=== PATIENT | female | born 2000 | race African-American/Black ===

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

== ENCOUNTER 2018-04-11 20:25 | Observation (INO) | payer OTHER ==
[2018-04-11] MEDS ORDERED: ONDANSETRON 4 MG/2 ML VIAL IVP STA (21:24)
[2018-04-11] MEDS ORDERED: IPRATROPIUM 0.5 MG/2.5 ML NEBU INHALATION STA (21:24)
[2018-04-11] MEDS ORDERED: ALBUTEROL NEBULIZED 2.5 MG/3 ML INHALATION STA (21:24)
[2018-04-11] MEDS ORDERED: ACETAMINOPHEN TAB 500 MG TAB PO STA (21:24)
[2018-04-11] MEDS ORDERED: SODIUM CHLORIDE 0.9% 1,000 ML IV ONE ×2 (21:24→23:06)
[2018-04-11 21:59] LABS: Basophils % (A) 1 %; Eosinophils # (A) 0.1 k/uL (0-0.7); Eosinophils % (A) 2 %; HCT 40.1 % (34.0-46.0); Lymphocytes # (A) 0.9 k/uL (1.0-4.8); Lymphocytes % (A) 13 %; MCH 23.3 pg (25.0-35.0); MCHC 32.3 g/dL (31.0-37.0); MCV 72.2 fL (80.0-100.0); Mean Platelet Volume 6.4; Microcytosis Moderate; Monocytes # (A) 0.4 k/uL (0-1.0); Monocytes % (A) 6 %; Neutrophils # (A) 5.3 k/uL (1.3-7.7); Neutrophils % (A) 77 %; Platelet Count 366 k/uL (150-450); RBC 5.56 m/uL (3.80-5.40); RDW 15.3 % (11.5-15.5); WBC 6.9 k/uL (4.0-11.0)
[2018-04-11 22:21] LABS: ALT 24 U/L (9-52); AST 23 U/L (14-36); Alkaline Phosphatase 64 U/L (38-126); Anion Gap 9 mmol/L; Blood Urea Nitrogen 9 mg/dL (7-17); Calcium 9.1 mg/dL (8.4-10.2); Carbon Dioxide 22 mmol/L (22-30); Chloride 107 mmol/L (98-107); Glucose 98 mg/dL (74-99); Sodium 138 mmol/L (137-145); Total Bilirubin 0.6 mg/dL (0.2-1.3); Total Protein 6.9 g/dL (6.3-8.2)
--- NOTE | 2018-04-11 22:59 | XR ---
EXAMINATION TYPE: XR chest 2V DATE OF EXAM: 04/11/2018 COMPARISON: 12/16/2017 HISTORY: Chest pain TECHNIQUE: Frontal and lateral views of the chest are obtained. FINDINGS: Heart and mediastinum are normal. Lungs are clear. Diaphragm is normal. Bony thorax is int act. Pulmonary vascularity is normal. IMPRESSION: Normal chest. No change.
[2018-04-11] MEDS ORDERED: methylPREDNISolone SOD SUCCI 125 MG/2 ML VIAL IV STA (23:51)
[2018-04-12 00:46] LABS: Appearance,Urine Clear (Clear); Bacteria,Urine Occasional /hpf; Bilirubin,Urine Negative (Negative); Blood,Urine Small (Negative); Color,Urine Yellow; Glucose,Urine (UA) Negative (Negative); Ketones,Urine 1+ (Negative); Leukocyte Esterase,Urine Negative (Negative); Mucus,Urine Many /hpf; Nitrite,Urine Negative (Negative); PH, Urine 5.5 (5.0-8.0); Protein,Urine Trace (Negative); RBC,Urine 4 /hpf (0-5); Specific Gravity,Urine 1.024 (1.001-1.035); Squamous Epithelial Cell,Urine 5 /hpf (0-4); Urobilinogen,Urine <2.0 mg/dL (<2.0); WBC,Urine 3 /hpf (0-5)
[2018-04-12] MEDS ORDERED: NALOXONE 0.4 MG/ML 1 ML VIAL IV PRN (01:26)
[2018-04-12] MEDS ORDERED: ONDANSETRON 4 MG/2 ML VIAL IVP PRN (01:26)
[2018-04-12] MEDS ORDERED: ACETAMINOPHEN TAB 500 MG TAB PO PRN (01:27)
[2018-04-12] MEDS ORDERED: IPRATROPIUM-ALBUTEROL 3 ML NEB INHALATION PRN (01:27)
--- NOTE | 2018-04-12 01:29 | ED ---
SOB HPI - General Source: patient Mode of arrival: ambulatory Limitations: no limitations <Precious De Oliveira - Last Filed: 04/12/18 01:30> <Tomy Louis - Last Filed: 04/18/18 11:00> - General Chief Complaint: Shortness of Breath Stated Complaint: ANGELICA Time Seen by Provider: 04/11/18 21:13 - History of Present Illness Initial Comments: 17-year-old female patient with past medical history significant for asthma presents to emergency department today for evaluation of shortness of breath, cough, and fever. Patient states she's been having increasing shortness of breath since Wednesday. Patient states that she is felt so short of breath she's been wearing her mother's oxygen all weekend. States she has done multiple breathing treatments every day doesn't seem to help. Patient states she has been using her inhaler as well. Patient states that she today she felt feverish and chilled. States she is coughing but denies any sputum production. Denies any nasal congestion or sore throat. States that she is nauseated today but has not vomited. She denies any rash, leg pain, leg swelling, recent travel. Patient denies any recent abdominal pain, diarrhea, constipation, back pain, numbness, tingling, dizziness, weakness, hematuria, dysuria, urinary urgency, urinary frequency, headache, visual changes, or any other complaints. (Precious De Oliveira) - Related Data Home Medications Medication Instructions Recorded Confirmed Albuterol Inhaler [Ventolin Hfa 2 puff INHALATION RT-Q6H PRN 12/16/17 04/11/18 Inhaler] Previous Rx's Medication Instructions Recorded Ipratropium-Albuterol Nebulize 3 ml INHALATION RT-Q4H #120 04/13/18 [Duoneb 0.5 mg-3 mg/3 ml Soln] ampul.neb methylPREDNISolone Dose Pack 24 mg PO DAILY #1 pack 04/13/18 [Medrol Dose Pack] Allergies Allergy/AdvReac Type Severity Reaction Status Date / Time ibuprofen [From Motrin] Allergy Unknown Verified 04/11/18 21:29 Sulfa (Sulfonamide Allergy Unknown Verified 04/11/18 21:29 Antibiotics) Review of Systems ROS Other: All systems not noted in ROS Statement are negative. <Precious De Oliveira - Last Filed: 04/12/18 01:30> ROS Other: All systems not noted in ROS Statement are negative. <Tomy Louis - Last Filed: 04/18/18 11:00> ROS Statement: Those systems with pertinent positive or pertinent negative responses have been documented in the HPI. Past Medical History Past Medical History: Asthma, Thyroid Disorder Additional Past Medical History / Comment(s): low iron History of Any Multi-Drug Resistant Organisms: None Reported Past Surgical History: No Surgical Hx Reported Past Anesthesia/Blood Transfusion Reactions: No Reported Reaction Past Psychological History: ADD/ADHD, Anxiety Smoking Status: Current some day smoker Past Alcohol Use History: None Reported Past Drug Use History: None Reported <Precious De Oliveira - Last Filed: 04/12/18 01:30> General Exam Limitations: no limitations General appearance: alert, other (This is a well-developed, well-nourished adult female patient in mild respiratory distress. Vital signs upon presentation are temperature 101.6F, pulse 104, respirations 40, blood pressure 149/88, pulse ox 90% on room air.) Eye exam: Present: normal appearance, PERRL, EOMI. Absent: scleral icterus, conjunctival injection, periorbital swelling ENT exam: Present: normal exam, normal oropharynx, mucous membranes moist, TM's normal bilaterally Respiratory exam: Present: wheezes (Expiratory wheezing to all posterior lung flores), decreased breath sounds, other (Patient is tachypneic). Absent: normal lung sounds bilaterally, respiratory distress, rales, rhonchi, stridor Cardiovascular Exam: Present: normal rhythm, tachycardia, normal heart sounds. Absent: systolic murmur, diastolic murmur, rubs, gallop, clicks GI/Abdominal exam: Present: soft, normal bowel sounds. Absent: distended, tenderness, guarding, rebound, rigid Neurological exam: Present: alert, oriented X3, CN II-XII intact Psychiatric exam: Present: normal affect, normal mood Skin exam: Present: warm, dry, intact, normal color. Absent: rash <Precious De Oliveira - Last Filed: 04/12/18 01:30> Vital Signs 04/11/18 04/11/18 04/11/18 20:25 21:33 21:50 Temperature 101.6 F H Pulse Rate 104 H 86 88 Respiratory 40 H Rate Blood Pressure 149/88 O2 Sat by Pulse 90 L Oximetry 04/11/18 04/11/18 04/11/18 22:01 22:11 23:05 Temperature 101.8 F H Pulse Rate 92 92 118 H Respiratory 18 18 Rate Blood Pressure 124/57 O2 Sat by Pulse 96 Oximetry 04/12/18 04/12/18 04/12/18 01:20 02:58 04:32 Temperature 99.9 F H 98.6 F Pulse Rate 98 81 78 Respiratory 20 20 Rate Blood Pressure 128/79 114/53 O2 Sat by Pulse 94 L 96 Oximetry 04/12/18 04/12/18 04:44 06:10 Temperature 98.3 F Pulse Rate 78 68 Respiratory 18 Rate Blood Pressure 102/49 O2 Sat by Pulse 94 L Oximetry Medical Decision Making - Lab Data Result diagrams: 04/11/18 21:40 04/11/18 21:40 - Radiology Data Radiology results: report reviewed, image reviewed <Precious De Oliveira - Last Filed: 04/12/18 01:30> - Lab Data Result diagrams: 04/11/18 21:40 04/11/18 21:40 <Tomy Louis - Last Filed: 04/18/18 11:00> - Medical Decision Making 17-year-old female patient presents the emergency department today for evaluation of shortness of breath. Upon arrival patient was to, hypoxic, and tachycardic. Lung sounds did reveal expiratory wheezing but mostly overall decreased air movement. Labs reviewed and are relatively unremarkable. Patient is not . Chest x-ray showed no acute cardiopulmonary process. Patient was febrile upon arrival. She was given Tylenol, IV fluids, continuous albuterol Atrovent treatment. Patient remained hypoxic and tachycardic. We'll admit to hospital for acute asthma exacerbation probably complicated by acute viral bronchitis. We will continue breathing treatments and IV steroids. Did discuss findings and results with the patient. She does not have a primary care physician so she'll be admitted to Dr. Hardy. (Precious De Oliveira) I saw this patient in conjunction with the physician assistant nurse manager. I performed independent history and physical exam. Agree with case management. (Tomy Louis) - Lab Data Lab Results 04/11/18 04/11/18 04/11/18 Range/Units 21:40 21:40 21:40 WBC 6.9 (4.0-11.0) k/uL RBC 5.56 H (3.80-5.40) m/uL Hgb 13.0 (11.4-16.0) gm/dL Hct 40.1 (34.0-46.0) % MCV 72.2 L (80.0-100.0) fL MCH 23.3 L (25.0-35.0) pg MCHC 32.3 (31.0-37.0) g/dL RDW 15.3 (11.5-15.5) % Plt Count 366 (150-450) k/uL Neutrophils % 77 % Lymphocytes % 13 % Monocytes % 6 % Eosinophils % 2 % Basophils % 1 % Neutrophils # 5.3 (1.3-7.7) k/uL Lymphocytes # 0.9 L (1.0-4.8) k/uL Monocytes # 0.4 (0-1.0) k/uL Eosinophils # 0.1 (0-0.7) k/uL Basophils # 0.0 (0-0.2) k/uL Microcytosis Moderate D-Dimer (<0.60) mg/L FEU Sodium 138 (137-145) mmol/L Potassium 4.0 (3.5-5.1) mmol/L Chloride 107 (98-107) mmol/L Carbon Dioxide 22 (22-30) mmol/L Anion Gap 9 mmol/L BUN 9 (7-17) mg/dL Creatinine 0.90 (0.52-1.04) mg/dL Est GFR (CKD-EPI)AfAm >90 (>60 ml/min/1.73 sqM) Est GFR (CKD-EPI)NonAf >90 (>60 ml/min/1.73 sqM) Glucose 98 (74-99) mg/dL Plasma Lactic Acid Chauncey 1.1 (0.7-2.0) mmol/L Calcium 9.1 (8.4-10.2) mg/dL Magnesium 2.0 (1.6-2.3) mg/dL Total Bilirubin 0.6 (0.2-1.3) mg/dL AST 23 (14-36) U/L ALT 24 (9-52) U/L Alkaline Phosphatase 64 (38-126) U/L Total Protein 6.9 (6.3-8.2) g/dL Albumin 4.0 (3.5-5.0) g/dL Urine Color Urine Appearance (Clear) Urine pH (5.0-8.0) Ur Specific Huntley (1.001-1.035) Urine Protein (Negative) Urine Glucose (UA) (Negative) Urine Ketones (Negative) Urine Blood (Negative) Urine Nitrite (Negative) Urine Bilirubin (Negative) Urine Urobilinogen (<2.0) mg/dL Ur Leukocyte Esterase (Negative) Urine RBC (0-5) /hpf Urine WBC (0-5) /hpf Ur Squamous Epith Cells (0-4) /hpf Urine Bacteria (None) /hpf Urine Mucus (None) /hpf Urine HCG, Qual (Not Detectd) Influenza Type A RNA (Not Detectd) Influenza Type B (PCR) (Not Detectd) 04/11/18 04/11/18 04/12/18 Range/Units 21:40 23:14 00:19 WBC (4.0-11.0) k/uL RBC (3.80-5.40) m/uL Hgb (11.4-16.0) gm/dL Hct (34.0-46.0) % MCV (80.0-100.0) fL MCH (25.0-35.0) pg MCHC (31.0-37.0) g/dL RDW (11.5-15.5) % Plt Count (150-450) k/uL Neutrophils % % Lymphocytes % % Monocytes % % Eosinophils % % Basophils % % Neutrophils # (1.3-7.7) k/uL Lymphocytes # (1.0-4.8) k/uL Monocytes # (0-1.0) k/uL Eosinophils # (0-0.7) k/uL Basophils # (0-0.2) k/uL Microcytosis D-Dimer 0.43 (<0.60) mg/L FEU Sodium (137-145) mmol/L Potassium (3.5-5.1) mmol/L Chloride (98-107) mmol/L Carbon Dioxide (22-30) mmol/L Anion Gap mmol/L BUN (7-17) mg/dL Creatinine (0.52-1.04) mg/dL Est GFR (CKD-EPI)AfAm (>60 ml/min/1.73 sqM) Est GFR (CKD-EPI)NonAf (>60 ml/min/1.73 sqM) Glucose (74-99) mg/dL Plasma Lactic Acid Chauncey (0.7-2.0) mmol/L Calcium (8.4-10.2) mg/dL Magnesium (1.6-2.3) mg/dL Total Bilirubin (0.2-1.3) mg/dL AST (14-36) U/L ALT (9-52) U/L Alkaline Phosphatase (38-126) U/L Total Protein (6.3-8.2) g/dL Albumin (3.5-5.0) g/dL Urine Color Urine Appearance (Clear) Urine pH (5.0-8.0) Ur Specific Huntley (1.001-1.035) Urine Protein (Negative) Urine Glucose (UA) (Negative) Urine Ketones (Negative) Urine Blood (Negative) Urine Nitrite (Negative) Urine Bilirubin (Negative) Urine Urobilinogen (<2.0) mg/dL Ur Leukocyte Esterase (Negative) Urine RBC (0-5) /hpf Urine WBC (0-5) /hpf Ur Squamous Epith Cells (0-4) /hpf Urine Bacteria (None) /hpf Urine Mucus (None) /hpf Urine HCG, Qual Not Detected (Not Detectd) Influenza Type A RNA Not Detected (Not Detectd) Influenza Type B (PCR) Not Detected (Not Detectd) 04/12/18 Range/Units 00:19 WBC (4.0-11.0) k/uL RBC (3.80-5.40) m/uL Hgb (11.4-16.0) gm/dL Hct (34.0-46.0) % MCV (80.0-100.0) fL MCH (25.0-35.0) pg MCHC (31.0-37.0) g/dL RDW (11.5-15.5) % Plt Count (150-450) k/uL Neutrophils % % Lymphocytes % % Monocytes % % Eosinophils % % Basophils % % Neutrophils # (1.3-7.7) k/uL Lymphocytes # (1.0-4.8) k/uL Monocytes # (0-1.0) k/uL Eosinophils # (0-0.7) k/uL Basophils # (0-0.2) k/uL Microcytosis D-Dimer (<0.60) mg/L FEU Sodium (137-145) mmol/L Potassium (3.5-5.1) mmol/L Chloride (98-107) mmol/L Carbon Dioxide (22-30) mmol/L Anion Gap mmol/L BUN (7-17) mg/dL Creatinine (0.52-1.04) mg/dL Est GFR (CKD-EPI)AfAm (>60 ml/min/1.73 sqM) Est GFR (CKD-EPI)NonAf (>60 ml/min/1.73 sqM) Glucose (74-99) mg/dL Plasma Lactic Acid Chauncey (0.7-2.0) mmol/L Calcium (8.4-10.2) mg/dL Magnesium (1.6-2.3) mg/dL Total Bilirubin (0.2-1.3) mg/dL AST (14-36) U/L ALT (9-52) U/L Alkaline Phosphatase (38-126) U/L Total Protein (6.3-8.2) g/dL Albumin (3.5-5.0) g/dL Urine Color Yellow Urine Appearance Clear (Clear) Urine pH 5.5 (5.0-8.0) Ur Specific Huntley 1.024 (1.001-1.035) Urine Protein Trace H (Negative) Urine Glucose (UA) Negative (Negative) Urine Ketones 1+ H (Negative) Urine Blood Small H (Negative) Urine Nitrite Negative (Negative) Urine Bilirubin Negative (Negative) Urine Urobilinogen <2.0 (<2.0) mg/dL Ur Leukocyte Esterase Negative (Negative) Urine RBC 4 (0-5) /hpf Urine WBC 3 (0-5) /hpf Ur Squamous Epith Cells 5 H (0-4) /hpf Urine Bacteria Occasional H (None) /hpf Urine Mucus Many H (None) /hpf Urine HCG, Qual (Not Detectd) Influenza Type A RNA (Not Detectd) Influenza Type B (PCR) (Not Detectd) - Radiology Data Two-view x-ray of the chest is obtained. Heart mediastinum are normal. Lungs are clear. Diaphragm is normal. Bony thorax is intact. Pulmonary vascularity is normal. Impression by Dr. Gottlieb shows normal chest with no change. ( Precious De Oliveira) Disposition Decision to Admit Reason: Admit from EC Decision Date: 04/12/18 Decision Time: 01:36 <Precious De Oliveira - Last Filed: 04/12/18 01:30> <Tomy Louis - Last Filed: 04/18/18 11:00> Clinical Impression: Acute asthma exacerbation, Acute viral bronchitis, Hypoxia Disposition: ADMITTED IP TO THIS HOSP Condition: Serious
[2018-04-12] MEDS: IPRATROPIUM-ALBUTEROL 3 ML NEB INHALATION SCH ×5 (04:28→19:41)
[2018-04-12] MEDS: methylPREDNISolone SOD SUCCI 125 MG/2 ML VIAL IV SCH ×3 (06:08→17:24)
[2018-04-12] MEDS ORDERED: LEVOFLOXACIN 500 MG TAB PO STA (12:16)
[2018-04-12 14:08] VITALS: BMI 41.8
--- NOTE | 2018-04-12 15:53 | HP ---
HISTORY AND PHYSICAL CHIEF COMPLAINT: Shortness of breath and difficulty breathing, history of asthma. HISTORY OF PRESENT ILLNESS: This young lady was admitted through the emergency room, where she presented with asthma, bronchospasm which could not be broken, and she was admitted with status asthmaticus. She is not currently taking any medications at home. REVIEW OF SYSTEMS: She has had no headaches, problems with vision or hearing, cough, hemoptysis, chills, chest pain, abdominal pain, vomiting, diarrhea, melena, urinary complaints, etc. She does have problems with anxiety. Past medical history, family history, and personal and social histories reveal that she is ALLERGIC TO MOTRIN AND SULFA. She smokes occasionally. Laboratory studies were unremarkable. PHYSICAL EXAMINATION: VITAL SIGNS: Temperature 101.6, blood pressure 149/88. Respiratory rate is 40 and pulse is 104. In general she appeared to be short of breath and in no acute distress. Head, ears, eyes, nose, mouth and throat were normal. Neck veins were not distended. Chest demonstrated bilateral wheezing on inspiration and expiration. There was a prolonged expiratory phase. She had sinus tachycardia. The abdomen was soft and nontender and there were no masses or visceromegaly. IMPRESSIONS: 1. Status asthmaticus. 2. History of anxiety. 3. Fever of unknown origin. 4. Bronchitis. 5. Hypertension. PLAN: 1. Bed rest. 2. IV fluids. 3. IV inhaled steroids. 4. Antibiotics. BEAN / SUSANA: [id number] /
[2018-04-13] MEDS: methylPREDNISolone SOD SUCCI 125 MG/2 ML VIAL IV SCH ×2 (01:00→06:21)
[2018-04-13] MEDS: IPRATROPIUM-ALBUTEROL 3 ML NEB INHALATION SCH ×4 (01:20→11:38)
[2018-04-13 06:03] VITALS: RESP 16
[2018-04-13 12:07] VITALS: BP 115/56; PULSE 75; TEMP 97.8
--- NOTE | 2018-04-13 22:44 | DS ---
DISCHARGE SUMMARY DATE OF SERVICE: 04/13/2018. CHIEF COMPLAINT: Status asthmaticus. HISTORY OF PRESENT ILLNESS AND PHYSICAL EXAM: Details of this lady's history and physical can be found in the initial workup. LABORATORY STUDIES: While she was in a hospital she had laboratory studies, details which can be found laboratory section of her chart. COURSE IN HOSPITAL: After admission, she was placed on bedrest, started on intravenous fluids and she received IV inhaled steroids as well as updrafts and she was doing quite well. It was felt clear enough to go home on the . She will go home and be provided with a nebulizer machine with DuoNeb and she will also be on Medrol Dosepak. We will see her in the office in a day or 2. FINAL DIAGNOSIS: Status asthmaticus. OPERATIONS: None. CONSULTATIONS: None. She is improved. JESSIEL / GALLON: [id number] /
[2018-04-14] MEDS ORDERED: methylPREDNISolone 4 MG TAB TAPER PO SCH (09:00)
== END 2018-04-13 13:05 | disposition home or self-care (01) ==
LOC: EC 20:25 → 3NMEDONC 04-12 01:20 → INTOOBSV 04-12 01:20 → 3NMEDONC 04-12 06:55 → UNDODISIN 04-13 13:05
PROVIDERS: ADMIT Family Medicine; ATTEND Family Medicine
DX: J45.902 Unspecified asthma with status asthmaticus (principal); R09.02 Hypoxemia; J20.8 Acute bronchitis due to other specified organisms; I10 Essential (primary) hypertension; R11.0 Nausea; E07.9 Disorder of thyroid, unspecified; F90.9 Attention-deficit hyperactivity disorder, unspecified type; F41.9 Anxiety disorder, unspecified; F17.200 Nicotine dependence, unspecified, uncomplicated; Z79.899 Other long term (current) drug therapy; Z88.6 Allergy status to analgesic agent; Z88.2 Allergy status to sulfonamides
CPT/HCPCS: 96376 ×3; 96361 ×2; 96374; 96375; 99285; 36415; 94640 ×4; 94644; 85379; 80053; 83605; 83735; 85025; 81001; 81025; 87040; 87502; 71046; G0378 ×2; J2930 ×2; J2405

== ENCOUNTER → 2018-05-05 | Outpatient (CLI) | payer OTHER ==
--- NOTE | 2018-05-05 08:24 | US ---
EXAMINATION TYPE: US abdomen complete DATE OF EXAM: 05/05/2018 COMPARISON: NONE CLINICAL HISTORY: K52.9 Chronic Diarrhea, N91.2 Amenorrhea, R10.9abd. Intermittent abdomen pain x 2 y ears, N/V EXAM MEASUREMENTS: Liver Length: 17.1 cm Gallbladder Wall: 0.2 cm CBD: 0.4 cm Spleen: 9.0 cm Right Kidney: 10.2 x 4.0 x 5.1 cm Left Kidney: 10.2 x 5.3 x 5.1 cm Difficult and limited study due to patient body habitus Pancreas: obscured by overlying midline bowel gas Liver: wnl Gallbladder: limited visualization, appears contracted, posterior shadowing possible full of stones, wall measures wnl Evidence for sonographic Barraza's sign: yes CBD: visualized portions wnl, limited by overlying bowel gas Spleen: wnl Right Kidney: wnl Left Kidney: wnl Upper IVC: wnl Abd Aorta: visualized portions wnl, limited by overlying midline bowel gas The visualized liver is homogenous. The intrahepatic portion of the IVC and visualized abdominal aor ta are within normal limits. At level of gallbladder fossa there is curvilinear shadowing density cou ld reflect stone filled contracted gallbladder. Common bile duct is unremarkable. The pancreas is s uboptimally evaluated on images saved secondary to shadowing from overlying bowel gas per technologis t. The spleen is unremarkable. Kidneys are symmetric and free of hydronephrosis. No renal lesions are seen. IMPRESSION: Exam noted suboptimal as detailed above. Suspect stone filled contracted gallbladder. Inp atient with above symptoms and positive sonographic Barraza's sign acute cholecystitis cannot be entir marty excluded. Consider HIDA scan follow-up.
--- NOTE | 2018-05-05 10:44 | US ---
EXAMINATION TYPE: US pelvic complete DATE OF EXAM: 05/05/2018 COMPARISON: NONE CLINICAL HISTORY: K52.9 Chronic Diarrhea, N91.2 Amenorrhea, R10.9abd. Intermittent pelvic pain x 2 ye ars TECHNIQUE: Transabdominal (TA). Transabdominal sonographic images of the pelvis were acquired. Date of LMP: Unknown EXAM MEASUREMENTS: Uterus: 7.5 x 3.8 x 5.4 cm Endometrial Stripe: 0.5 cm Right Ovary: 3.0 x 1.7 x 2.0 cm Left Ovary: 2.9 x 1.4 x 1.4 cm 1. Uterus: anteverted, wnl 2. Endometrium: wnl 3. Right Ovary: wnl 4. Left Ovary: wnl 5. Bilateral Adnexa: wnl 6. Posterior cul-de-sac: wnl Heterogeneous anteverted uterus is seen. Endometrial stripe is within normal limits in thickness. No free fluid is seen in pelvic cul-de-sac. Both ovaries are seen without concerning adnexal masses note d on images saved. IMPRESSION: Unremarkable transabdominal pelvic ultrasound
== END | disposition home or self-care (01) ==
LOC: RADUSWWP 07:00
PROVIDERS: ATTEND Family Medicine
DX: R10.9 Unspecified abdominal pain (principal); K62.9 Disease of anus and rectum, unspecified; N91.2 Amenorrhea, unspecified
CPT/HCPCS: 76700; 76856

== ENCOUNTER 2018-07-30 18:38 | Emergency (ER) | payer OTHER ==
[2018-07-30 18:51] VITALS: BP 113/73; TEMP 99.3
[2018-07-30] MEDS ORDERED: ALBUTEROL NEBULIZED 2.5 MG/3 ML INHALATION STA (19:05)
--- NOTE | 2018-07-30 19:10 | ED ---
URI HPI - General Chief Complaint: Upper Respiratory Infection Stated Complaint: Cough Time Seen by Provider: 07/30/18 18:58 Source: patient Mode of arrival: ambulatory Limitations: no limitations - History of Present Illness Initial Comments: 17 -year-old female presents with upper story symptoms for last 2 weeks. Patient had a cough and congestion that has some green phlegm production. Patient states she's gotten worse over last few days and having some discomfort in her chest. Patient does have a history of asthma and has possibly had a pneumonia in the past as well. Patient does not think she's had any fevers patient does feel fatigued. No sinus congestion no sore throat MD Complaint: cough - Related Data Home Medications Medication Instructions Recorded Confirmed Albuterol Inhaler [Ventolin Hfa 2 puff INHALATION RT-Q6H PRN 12/16/17 04/11/18 Inhaler] Previous Rx's Medication Instructions Recorded Ipratropium-Albuterol Nebulize 3 ml INHALATION RT-Q4H #120 04/13/18 [Duoneb 0.5 mg-3 mg/3 ml Soln] ampul.neb methylPREDNISolone Dose Pack 24 mg PO DAILY #1 pack 04/13/18 [Medrol Dose Pack] Azithromycin [Zithromax Z-pack] 250 mg PO DIRECTED #6 tab 07/30/18 methylPREDNISolone [Medrol Dose 4 mg PO DIRECTED #1 pack 07/30/18 Pack] Allergies Allergy/AdvReac Type Severity Reaction Status Date / Time ibuprofen [From Motrin] Allergy Unknown Verified 07/30/18 18:51 Sulfa (Sulfonamide Allergy Unknown Verified 07/30/18 18:51 Antibiotics) Review of Systems ROS Statement: Those systems with pertinent positive or pertinent negative responses have been documented in the HPI. ROS Other: All systems not noted in ROS Statement are negative. Constitutional: Denies: fever, chills Respiratory: Reports: cough Endocrine: Reports: fatigue Gastrointestinal: Denies: nausea, vomiting, diarrhea Neurological: Denies: headache, weakness Past Medical History Past Medical History: Asthma, Thyroid Disorder Additional Past Medical History / Comment(s): low iron, enlarged thyroid, severe headaches. History of Any Multi-Drug Resistant Organisms: None Reported Past Surgical History: No Surgical Hx Reported Additional Past Surgical History / Comment(s): Pt states she has never had surgery. Past Anesthesia/Blood Transfusion Reactions: No Reported Reaction Past Psychological History: ADD/ADHD, Anxiety Smoking Status: Light tobacco smoker Past Alcohol Use History: None Reported Past Drug Use History: None Reported - Past Family History Father History Unknown: Yes Additional Family Medical History / Comment(s): Pt's father is not in her life Mother Family Medical History: COPD Additional Family Medical History / Comment(s): Mother wears oxygen at night. General Exam Limitations: no limitations General appearance: alert, in no apparent distress Head exam: Present: atraumatic, normocephalic, normal inspection Eye exam: Present: normal appearance, PERRL, EOMI. Absent: scleral icterus, conjunctival injection, periorbital swelling ENT exam: Present: normal exam, mucous membranes moist Respiratory exam: Present: normal lung sounds bilaterally, wheezes. Absent: respiratory distress, rales, rhonchi, stridor Cardiovascular Exam: Present: regular rate, normal rhythm, normal heart sounds. Absent: systolic murmur, diastolic murmur, rubs, gallop, clicks Neurological exam: Present: alert, oriented X3, CN II-XII intact Psychiatric exam: Present: normal affect, normal mood Skin exam: Present: warm, dry, intact, normal color. Absent: rash Course Vital Signs 07/30/18 07/30/18 18:49 19:20 Temperature 99.3 F Pulse Rate 78 Respiratory 18 20 Rate Blood Pressure 113/73 O2 Sat by Pulse 100 Oximetry Medical Decision Making - Medical Decision Making Reviewed blood testing negative Influenza. Reviewed chest x-ray no acute infiltrate however increased inflammation of the right lower lung we'll treat with antibiotics and steroids the patient kvng has an inhaler at home. - Lab Data Lab Results 07/30/18 Range/Units 19:18 Influenza Type A RNA Not Detected (Not Detectd) Influenza Type B (PCR) Not Detected (Not Detectd) Disposition Clinical Impression: Bronchitis Disposition: HOME SELF-CARE Condition: Good Instructions (If sedation given, give patient instructions): Upper Respiratory Infection (ED), Acute Bronchitis (ED) Prescriptions: methylPREDNISolone [Medrol Dose Pack] 4 mg PO DIRECTED #1 pack Azithromycin [Zithromax Z-pack] 250 mg PO DIRECTED #6 tab Is patient prescribed a controlled substance at d/c from ED?: No Referrals: Deepika Agrawal MD [Primary Care Provider] - 1-2 days Time of Disposition: 19:55
[2018-07-30 19:21] VITALS: RESP 20
[2018-07-30 20:11] VITALS: PULSE 70
--- NOTE | 2018-07-30 20:28 | XR ---
EXAMINATION TYPE: XR chest 2V DATE OF EXAM: 07/30/2018 COMPARISON: 04/11/2018 INDICATION: Pain, cough TECHNIQUE: Frontal and lateral views of the chest are obtained. FINDINGS: The heart size is normal. The pulmonary vasculature is normal. The lungs are clear. IMPRESSION: 1. No acute pulmonary process.
== END 2018-07-30 20:30 | disposition home or self-care (01) ==
LOC: EC 18:38
DX: J45.909 Unspecified asthma, uncomplicated (principal); F17.200 Nicotine dependence, unspecified, uncomplicated; Z88.2 Allergy status to sulfonamides; Z88.6 Allergy status to analgesic agent
CPT/HCPCS: 71046; 87502; 94640; 99284

== ENCOUNTER 2018-08-10 19:53 | Emergency (ER) | payer OTHER ==
[2018-08-10 20:05] VITALS: BP 106/68; PULSE 102; RESP 18; TEMP 100
[2018-08-10] MEDS ORDERED: ACETAMINOPHEN TAB 500 MG TAB PO STA (20:09)
[2018-08-10] MEDS ORDERED: AMOXICILLIN 500 MG CAP PO STA (20:18)
--- NOTE | 2018-08-10 20:28 | ED ---
General Adult HPI - General Chief complaint: ENT Stated complaint: Throat Pain Time Seen by Provider: 08/10/18 20:06 Source: patient, RN notes reviewed, old records reviewed Mode of arrival: ambulatory Limitations: no limitations - History of Present Illness Initial comments: 17-year-old female patient with no pertinent past history presents to ED with 1 day of sore throat, enlarged tonsils, exudate and posterior pharynx. Patient also reports some minor fevers. Patient denies any other complaints. Systemic: Pt denies fatigue, myalgia, fever/chills, rash. Pt denies weakness, night sweats, weight loss. Neuro: Pt denies headache, visual disturbances, syncope or pre-syncope. HEENT: Pt denies ocular discharge or irritation, otalgia, rhinorrhea, phar yngitis or notable lymphadenopathy. Cardiopulmonary: Pt denies chest pain, SOB, heart palpitations, dyspnea on exertion. Abdominal/GI: Pt denies abdominal pain, n/v/d. : Pt denies dysuria, burning w/ urination, frequency/urgency. Denies new onset urinary or bowel incontinence. MSK: Pt denies myalgia, loss of strength or function in extremities. Neuro: Pt denies new onset weakness, paresthesias. - Related Data Home Medications Medication Instructions Recorded Confirmed Albuterol Inhaler [Ventolin Hfa 2 puff INHALATION RT-Q6H PRN 12/16/17 04/11/18 Inhaler] Previous Rx's Medication Instructions Recorded Ipratropium-Albuterol Nebulize 3 ml INHALATION RT-Q4H #120 04/13/18 [Duoneb 0.5 mg-3 mg/3 ml Soln] ampul.neb methylPREDNISolone Dose Pack 24 mg PO DAILY #1 pack 04/13/18 [Medrol Dose Pack] Azithromycin [Zithromax Z-pack] 250 mg PO DIRECTED #6 tab 07/30/18 methylPREDNISolone [Medrol Dose 4 mg PO DIRECTED #1 pack 07/30/18 Pack] Amoxicillin 500 mg PO Q12HR 10 Days day 08/10/18 Allergies Allergy/AdvReac Type Severity Reaction Status Date / Time ibuprofen [From Motrin] Allergy Unknown Verified 08/10/18 20:05 Sulfa (Sulfonamide Allergy Unknown Verified 08/10/18 20:05 Antibiotics) Review of Systems ROS Statement: Those systems with pertinent positive or pertinent negative responses have been documented in the HPI. ROS Other: All systems not noted in ROS Statement are negative. Past Medical History Past Medical History: Asthma, Thyroid Disorder Additional Past Medical History / Comment(s): low iron, enlarged thyroid, severe headaches. History of Any Multi-Drug Resistant Organisms: None Reported Past Surgical History: No Surgical Hx Reported Additional Past Surgical History / Comment(s): Pt states she has never had surgery. Past Anesthesia/Blood Transfusion Reactions: No Reported Reaction Past Psychological History: ADD/ADHD, Anxiety Smoking Status: Light tobacco smoker Past Alcohol Use History: None Reported Past Drug Use History: None Reported - Past Family History Father History Unknown: Yes Additional Family Medical History / Comment(s): Pt's father is not in her life Mother Family Medical History: COPD Additional Family Medical History / Comment(s): Mother wears oxygen at night. General Exam - General Exam Comments Initial Comments: Constitutional: NAD, AOX3, Pt has pleasant affect. HEENT: NC/AT, trachea midline, neck supple, no lymphadenopathy. Posterior pharynx erythematous, +2 tonsils, with scattered exudates. External ears appear normal, without discharge. Mucous membranes moist. Eyes PERRLA, EOM intact. There is no scleral icterus. No pallor noted. Cardiopulmonary: RRR, no murmurs, rubs or gallops, no JVD noted. Lungs CTAB in anterior and posterior flores. No peripheral edema. Abdominal exam: Abdomen soft and non-distended. Abdomen non-tender to palpation in all 4 quadrants. Bowel sounds active in LLQ. No hepatosplenomegaly. No ecch ymosis Neuro: CN II-XII grossly intact. No nuchal rigidity. MSK: No posterior calf tenderness bilaterally, homans sign negative bilaterally. Posterior tibialis and radial pulse +2 bilaterally. Sensation intact in upper and lower extremities. Full active ROM in upper and lower extremities, 5/5 stregnth. Limitations: no limitations Course Vital Signs 08/10/18 20:03 Temperature 100 F H Pulse Rate 102 H Respiratory 18 Rate Blood Pressure 106/68 O2 Sat by Pulse 99 Oximetry Medical Decision Making - Medical Decision Making 17-year-old female patient with no pertinent past history presents to ED with 1 day of sore throat, enlarged tonsils, exudate and posterior pharynx. Patient also reports some minor fevers. Patient denies any other complaints. Pt VS displayed mild fever, pt administered antipyretic. Physical exam displayed: Posterior pharynx erythematous, +2 tonsils, with scattered exudates. Patient will be treated for presumed streptococcal pharyngitis. Patient administered 1 dose of amoxicillin ED. Patient discharged with prescription for amoxicillin. Patient to follow up with primary care provider in 1-2 days. Patient return to ER if condition worsens in any way. Case discussed with Dr. Miller. Disposition Clinical Impression: Pharyngitis Disposition: HOME SELF-CARE Condition: Stable Instructions (If sedation given, give patient instructions): Strep Throat (ED), Pharyngitis (ED) Additional Instructions: Patient to adhere to previously discussed treatment plan and will take medication(s) as directed. Patient to follow up with PCP in 1-2 days. Patient to return to ED if symptoms do not improve. Take medications as prescribed. Follow with primary care provider in 1-2 days. Return to ER if condition worsens. Prescriptions: Amoxicillin 500 mg PO Q12HR 10 Days day Is patient prescribed a controlled substance at d/c from ED?: No Referrals: Deepika Agrawal MD [Primary Care Provider] - 1-2 days
== END 2018-08-10 20:32 | disposition home or self-care (01) ==
LOC: EC 19:53
DX: J02.9 Acute pharyngitis, unspecified (principal); J45.909 Unspecified asthma, uncomplicated; F17.200 Nicotine dependence, unspecified, uncomplicated; Z88.2 Allergy status to sulfonamides; Z88.6 Allergy status to analgesic agent
CPT/HCPCS: 99283

== ENCOUNTER 2019-01-19 12:46 | Inpatient (IN) | payer MEDICAID, OTHER ==
[2019-01-19 13:49] LABS: Amphetamine Screen,Urine Not Detected (NotDetected); Barbiturate Screen,Urine Not Detected (NotDetected); Benzodiazepines Screen,Urine Not Detected (NotDetected); Cocaine Screen,Urine Not Detected (NotDetected); Methadone Screen, Urine Not Detected (NotDetected); Opiate Screen,Urine Not Detected (NotDetected); Oxycodone Screen, Urine Not Detected (NotDetected); Phencyclidine Screen,Urine Not Detected (NotDetected); Tricyclic Antidepressant,Urine Not Detected (NotDetected); Urn Cannabinoid Scrn Detected (NotDetected)
--- NOTE | 2019-01-19 14:54 | ED ---
Psych HPI - General Chief Complaint: Psychiatric Symptoms Stated Complaint: EPS eval Time Seen by Provider: 01/19/19 12:58 Source: patient, police, EMS, RN notes reviewed Mode of arrival: EMS - History of Present Illness Initial Comments: This is a 18-year-old female history depression since age of 12 but her grandmother who was brought in today for evaluation. She called her mother states she went to jump off a bridge and she was found by paramedics wandering near railroad tracks. Patient denies any drug drugs she states she just feels empty inside and then inside. No other modifying factors at this time MD Complaint: suicidal ideation, feels depressed - Related Data Home Medications Medication Instructions Recorded Confirmed Ferrous Sulfate [Feosol] 325 mg PO DAILY 01/19/19 01/19/19 Kurvelo 0.15/30mg 1 tab PO DAILY 01/19/19 01/19/19 Naproxen 500 mg PO BID 01/19/19 01/19/19 Varenicline [Chantix Continuing 1 mg PO BID 01/19/19 01/19/19 Pack] Allergies Allergy/AdvReac Type Severity Reaction Status Date / Time ibuprofen [From Motrin] Allergy Unknown Verified 08/10/18 20:05 Sulfa (Sulfonamide Allergy Unknown Verified 08/10/18 20:05 Antibiotics) Review of Systems ROS Statement: Those systems with pertinent positive or pertinent negative responses have been documented in the HPI. ROS Other: All systems not noted in ROS Statement are negative. Past Medical History Past Medical History: Asthma, Thyroid Disorder Additional Past Medical History / Comment(s): low iron, enlarged thyroid, severe headaches. History of Any Multi-Drug Resistant Organisms: None Reported Past Surgical History: No Surgical Hx Reported Additional Past Surgical History / Comment(s): Pt states she has never had surgery. Past Anesthesia/Blood Transfusion Reactions: No Reported Reaction Past Psychological History: ADD/ADHD, Anxiety Smoking Status: Light tobacco smoker Past Alcohol Use History: None Reported Past Drug Use History: None Reported - Past Family History Father History Unknown: Yes Additional Family Medical History / Comment(s): Pt's father is not in her life Mother Family Medical History: COPD Additional Family Medical History / Comment(s): Mother wears oxygen at night. General Exam - General Exam Comments Initial Comments: This is a well-developed well-nourished awake alert oriented 3 female she is tearful during the evaluation Limitations: no limitations General appearance: alert, in no apparent distress Head exam: Present: atraumatic, normocephalic, normal inspection Eye exam: Present: normal appearance, PERRL, EOMI. Absent: scleral icterus, conjunctival injection, periorbital swelling ENT exam: Present: normal exam, mucous membranes moist Neck exam: Present: normal inspection. Absent: tenderness, meningismus, lymphadenopathy Respiratory exam: Present: normal lung sounds bilaterally. Absent: respiratory distress, wheezes, rales, rhonchi, stridor Cardiovascular Exam: Present: regular rate, normal rhythm, normal heart sounds. Absent: systolic murmur, diastolic murmur, rubs, gallop, clicks GI/Abdominal exam: Present: soft, normal bowel sounds. Absent: distended, tenderness, guarding, rebound, rigid Extremities exam: Present: normal inspection, full ROM, normal capillary refill. Absent: tenderness, pedal edema, joint swelling, calf tenderness Back exam: Present: normal inspection Neurological exam: Present: alert, oriented X3, CN II-XII intact Psychiatric exam: Present: depressed, flat affect, suicidal ideation Skin exam: Present: warm, dry, intact, normal color. Absent: rash Course Vital Signs 01/19/19 13:02 Temperature 98.0 F Pulse Rate 62 Respiratory 16 Rate Blood Pressure 126/56 O2 Sat by Pulse 95 Oximetry Medical Decision Making - Medical Decision Making Patient was evaluated by the psychiatric service and will be admitted for inpatient treatment of depression and suicidal ideation. She has agreed to sign an. - Lab Data Lab Results 01/19/19 Range/Units 13:00 Urine Opiates Screen Not Detected (NotDetected) Ur Oxycodone Screen Not Detected (NotDetected) Urine Methadone Screen Not Detected (NotDetected) Ur Propoxyphene Screen Not Detected (NotDetected) Ur Barbiturates Screen Not Detected (NotDetected) U Tricyclic Antidepress Not Detected (NotDetected) Ur Phencyclidine Scrn Not Detected (NotDetected) Ur Amphetamines Screen Not Detected (NotDetected) U Methamphetamines Scrn Not Detected (NotDetected) U Benzodiazepines Scrn Not Detected (NotDetected) Urine Cocaine Screen Not Detected (NotDetected) U Marijuana (THC) Screen Detected H (NotDetected) Disposition Clinical Impression: Depression, Suicidal ideation Disposition: TRANSFER TO PSYCH HOSP/UNIT Condition: Stable Referrals: Eduardo Saunders DO [Primary Care Provider] - 1-2 days
[2019-01-19 16:15] LABS: Appearance,Urine Clear (Clear); Bilirubin,Urine Negative (Negative); Blood,Urine Negative (Negative); Color,Urine Yellow; Glucose,Urine (UA) Negative (Negative); Ketones,Urine Negative (Negative); Leukocyte Esterase,Urine Negative (Negative); Nitrite,Urine Negative (Negative); Protein,Urine Negative (Negative); Specific Gravity,Urine 1.025 (1.001-1.035); Urobilinogen,Urine <2.0 mg/dL (<2.0)
[2019-01-19] MEDS ORDERED: MAG HYDROX/AL HYDROX/SIMETH 30 ML CUP PO PRN (17:25)
[2019-01-19] MEDS ORDERED: MAGNESIUM HYDROXIDE 2,400 MG/10 ML CUP PO PRN (17:25)
[2019-01-19] MEDS ORDERED: LORazepam 1 MG TAB PO PRN (17:25)
[2019-01-19] MEDS ORDERED: LORazepam 2 MG/ML INJ IM PRN (17:28)
[2019-01-19] MEDS ORDERED: ZIPRASIDONE 20 MG VIAL IM PRN (17:29)
[2019-01-19] MEDS: NICOTINE 7MG/24HR PATCH TRANSDERM SCH (19:35)
[2019-01-20 08:59] LABS: Basophils % (A) 0 %; Eosinophils # (A) 0.2 k/uL (0-0.7); Eosinophils % (A) 3 %; HCT 39.1 % (34.0-46.0); HGB 12.7 gm/dL (11.4-16.0); Lymphocytes # (A) 1.4 k/uL (1.0-4.8); Lymphocytes % (A) 22 %; MCH 24.8 pg (25.0-35.0); MCHC 32.6 g/dL (31.0-37.0); MCV 76.2 fL (80.0-100.0); Mean Platelet Volume 6.3; Microcytosis Slight; Monocytes # (A) 0.4 k/uL (0-1.0); Monocytes % (A) 5 %; Neutrophils # (A) 4.3 k/uL (1.3-7.7); Neutrophils % (A) 67 %; Platelet Count 423 k/uL (150-450); RBC 5.13 m/uL (3.80-5.40); WBC 6.5 k/uL (4.0-11.0)
[2019-01-20] MEDS: NICOTINE 7MG/24HR PATCH TRANSDERM SCH (09:01)
[2019-01-20 09:21] LABS: ALT 18 U/L (9-52); AST 21 U/L (14-36); African American GFR (CKD) >90 (>60 ml/min/1.73 sqM); Alkaline Phosphatase 59 U/L (38-126); Anion Gap 10 mmol/L; Blood Urea Nitrogen 10 mg/dL (7-17); Calcium 9.4 mg/dL (8.4-10.2); Carbon Dioxide 19 mmol/L (22-30); Chloride 109 mmol/L (98-107); Cholesterol 140 mg/dL (<200); Glucose 97 mg/dL (74-99); HDL Cholesterol 37 mg/dL (40-60); LDL Cholesterol,Calculated 84 mg/dL (0-99); Non-African American GFR(CKD) >90 (>60 ml/min/1.73 sqM); Potassium 4.1 mmol/L (3.5-5.1); Sodium 138 mmol/L (137-145); Total Bilirubin 1.8 mg/dL (0.2-1.3); Total Protein 6.8 g/dL (6.3-8.2); Triglycerides 96 mg/dL (<150)
[2019-01-20] MEDS ORDERED: diphenhydrAMINE 50 MG CAP PO PRN (13:58)
[2019-01-20] MEDS: busPIRone HCl 5 MG TAB PO SCH ×2 (14:11→20:43)
[2019-01-20] MEDS: lamoTRIgine 25 MG TAB PO SCH ×2 (14:11→20:43)
--- NOTE | 2019-01-20 14:13 | P.HP ---
Psychiatric H&P - . H&P Date: 01/20/19 History & Physical: Allergies Allergy/AdvReac Type Severity Reaction Status Date / Time ibuprofen From Motrin Allergy Unknown Verified 08/10/18 20:05 Sulfa (Sulfonamide Allergy Unknown Verified 08/10/18 20:05 Antibiotics) Vital Signs Temp 99.4 F 01/20/19 06:49 Pulse 70 01/20/19 06:49 Resp 20 01/20/19 06:49 BP 109/65 01/20/19 06:49 Pulse Ox 98 01/19/19 17:42 Intake & Output 01/19/19 01/20/19 01/20/19 18:59 06:59 18:59 Weight 102.965 kg Laboratory Last Values WBC 6.5 k/uL (4.0-11.0) 01/20/19 08:34 RBC 5.13 m/uL (3.80-5.40) 01/20/19 08:34 Hgb 12.7 gm/dL (11.4-16.0) 01/20/19 08:34 Hct 39.1 % (34.0-46.0) 01/20/19 08:34 MCV 76.2 fL (80.0-100.0) L 01/20/19 08:34 MCH 24.8 pg (25.0-35.0) L 01/20/19 08:34 MCHC 32.6 g/dL (31.0-37.0) 01/20/19 08:34 RDW 15.0 % (11.5-15.5) 01/20/19 08:34 Plt Count 423 k/uL (150-450) 01/20/19 08:34 Neutrophils % 67 % 01/20/19 08:34 Lymphocytes % 22 % 01/20/19 08:34 Monocytes % 5 % 01/20/19 08:34 Eosinophils % 3 % 01/20/19 08:34 Basophils % 0 % 01/20/19 08:34 Neutrophils # 4.3 k/uL (1.3-7.7) 01/20/19 08:34 Lymphocytes # 1.4 k/uL (1.0-4.8) 01/20/19 08:34 Monocytes # 0.4 k/uL (0-1.0) 01/20/19 08:34 Eosinophils # 0.2 k/uL (0-0.7) 01/20/19 08:34 Basophils # 0.0 k/uL (0-0.2) 01/20/19 08:34 Microcytosis Slight 01/20/19 08:34 Sodium 138 mmol/L (137-145) 01/20/19 08:34 Potassium 4.1 mmol/L (3.5-5.1) 01/20/19 08:34 Chloride 109 mmol/L (98-107) H 01/20/19 08:34 Carbon Dioxide 19 mmol/L (22-30) L 01/20/19 08:34 Anion Gap 10 mmol/L 01/20/19 08:34 BUN 10 mg/dL (7-17) 01/20/19 08:34 Creatinine 0.82 mg/dL (0.52-1.04) 01/20/19 08:34 Est GFR (CKD-EPI)AfAm >90 (>60 ml/min/1.73 sqM) 01/20/19 08:34 Est GFR (CKD-EPI)NonAf >90 (>60 ml/min/1.73 sqM) 01/20/19 08:34 Glucose 97 mg/dL (74-99) 01/20/19 08:34 Calcium 9.4 mg/dL (8.4-10.2) 01/20/19 08:34 Total Bilirubin 1.8 mg/dL (0.2-1.3) H 01/20/19 08:34 AST 21 U/L (14-36) 01/20/19 08:34 ALT 18 U/L (9-52) 01/20/19 08:34 Alkaline Phosphatase 59 U/L (38-126) 01/20/19 08:34 Total Protein 6.8 g/dL (6.3-8.2) 01/20/19 08:34 Albumin 4.0 g/dL (3.5-5.0) 01/20/19 08:34 Triglycerides 96 mg/dL (<150) 01/20/19 08:34 Cholesterol 140 mg/dL (<200) 01/20/19 08:34 LDL Cholesterol, Calc 84 mg/dL (0-99) 01/20/19 08:34 HDL Cholesterol 37 mg/dL (40-60) L 01/20/19 08:34 TSH 3.970 mIU/L (0.465-4.680) 01/20/19 08:34 Urine Color Yellow 01/19/19 16:00 Urine Appearance Clear (Clear) 01/19/19 16:00 Urine pH 6.0 (5.0-8.0) 01/19/19 16:00 Ur Specific Brush 1.025 (1.001-1.035) 01/19/19 16:00 Urine Protein Negative (Negative) 01/19/19 16:00 Urine Glucose (UA) Negative (Negative) 01/19/19 16:00 Urine Ketones Negative (Negative) 01/19/19 16:00 Urine Blood Negative (Negative) 01/19/19 16:00 Urine Nitrite Negative (Negative) 01/19/19 16:00 Urine Bilirubin Negative (Negative) 01/19/19 16:00 Urine Urobilinogen <2.0 mg/dL (<2.0) 01/19/19 16:00 Ur Leukocyte Esterase Negative (Negative) 01/19/19 16:00 Urine HCG, Qual Not Detected (Not Detectd) 01/19/19 16:00 Urine Opiates Screen Not Detected (NotDetected) 01/19/19 13:00 Ur Oxycodone Screen Not Detected (NotDetected) 01/19/19 13:00 Urine Methadone Screen Not Detected (NotDetected) 01/19/19 13:00 Ur Propoxyphene Screen Not Detected (NotDetected) 01/19/19 13:00 Ur Barbiturates Screen Not Detected (NotDetected) 01/19/19 13:00 U Tricyclic Antidepress Not Detected (NotDetected) 01/19/19 13:00 Ur Phencyclidine Scrn Not Detected (NotDetected) 01/19/19 13:00 Ur Amphetamines Screen Not Detected (NotDetected) 01/19/19 13:00 U Methamphetamines Scrn Not Detected (NotDetected) 01/19/19 13:00 U Benzodiazepines Scrn Not Detected (NotDetected) 01/19/19 13:00 Urine Cocaine Screen Not Detected (NotDetected) 01/19/19 13:00 U Marijuana (THC) Screen Detected (NotDetected) H 01/19/19 13:01/20/19 14:02 IDENTIFYING DATA: Patient is a 18-year-old -[place] female who currently lives with her mother's sister and her sister's kids and uncle and cousin in a house is currently unemployed and is working towards finishing her high school diploma. HPI: Patient presented to the hospital yesterday with suicidal ideations and threatening to jump off a bridge. Patient was agreeable to speak to appeals writer today and was tearful when describing feeling hopeless and helpless yesterday and also describing anger as she is feeling that she has no support. She states that she was feeling depressed since the age of 12 and has felt an increase in her depression in the past couple of months. She states that she wanted to talk to her mom on the phone however her mom has been dismissive of her lately and refused to talk to her as she was in "crisis". She states that then she try to talk to her sister who was also dismissive and did not want to talk to her. She states that her sister mentioned something about her going to be homeless and patient replied back via text stating "I will be homeless because I'm jumping". Patient states that after this her sister replied back and stated "lmao" signifying that she was laughing at her. Patient states that she then text that another friend who convinced her not to jump and then patient stated that after which she walked on the train tracks and her mother called the packing and wrapping supervisor to pick her up and bringing the hospital. Patient states that her biggest trigger at home is living in a "toxic place" and states that her family is not very supportive of her and she gets into a lot of arguments with them. She claims that she has nowhere else to go and feels hopeless. She also described having "mood swings" and lashing out. She states that she has anxiety throughout the day has poor energy and endorsed chronic suicidal ideations since the age of 12. She claims that she's been off her psychiatric meds for years now. When asked about manic/hypomanic symptoms patient states that she does have days which happened approximately 1 a month or every other month where she feels like she has a lot of energy is more irritable and does not need sleep. Patient denies any suicidal or homicidal ideations intent or plan. At this time patient denies any auditory or visual hallucinations. Patient denies any flight of ideas racing thoughts and increased in goal directed behavior. Patient admits to using marijuana frequently almost daily and with friends at parties. She also admits to smoking cigarettes approximately one pack a week. She denies any other recreational drugs or alcohol. PAST PSYCHIATRIC HISTORY: Patient states that she has a history of many admissions to different psychiatric hospitals however this is patient's first admission to this hospital. She states that her last admit was at [facility] in 2012 and claims that she has both depression and anxiety. She admitted to cutting her arms several times in the past and showed appeals writer several healed arm lacerations. She also admitted to other suicide attempts overdosing on pills. PMH: Asthma, thyroid disorder, headaches ALLERGIES: as per EMR CHEMICAL DEPENDENCY HISTORY: as per HPI FAMILY PSYCHIATRIC/SUBSTANCE USE HISTORY: denies SOCIAL HISTORY: Patient states that she was born and raised in [place] and then moved [place] She claims that now she lives in a house with her mother's sisters and her sister's kids, and uncle and cousin. She claims that she is unemployed has no kids and is currently enrolled in high school. MENTAL STATUS EXAM: General Appearance: Patient appears to be stated age is alert, directable and cooperative. Patient is overweight. Patient has poor hygiene and poor grooming. Behavior: Patient is calmly seated without any agitated behavior. Patient is tearful during the interview. Speech: Patient's speech is fluent and nonpressured. Mood/Affect: Patient reports their mood is depressed, affect is congruent and tearful Suicidality/Homicidality: Patient denies having any suicidal or homicidal ideation intent or plan. Perceptions: Patient denies any auditory or visual hallucinations. Though content/process: There is no evidence of any delusional thought content and thought process is linear and goal-directed. Memory and concentration: AOX3, grossly intact for the purposes of this session. Can spell "WORLD" backwards Judgment and insight: Poor STRENGTHS/WEAKNESSES: strength is that patient is resilient. Weaknesses the patient has poor support system and poor judgment/impulse control. INTELLECT: Below average IMPRESSIONS: Bipolar disorder, depressed Personality disorder unspecified rule out borderline personality disorder Cannabis use disorder Nicotine dependence PLAN: -Patient is admitted under voluntary status to [facility] for stabilization of psychiatric symptoms and safety. Patient signed adult voluntary form and medication consent and is placed in patient's chart. -Medications : Will start patient on Lamictal 25 mg twice a day for mood stabilization/depression. Patient was informed about the risks of possible Roblero-David's rash and how it is an urgent medical problem which need to be addressed and patient was advised to monitor her skin daily for any rashes. Will start patient on BuSpar 15 mg twice a day for anxiety. Benadryl 50 mg daily at bedtime for insomnia. -Geodon and Ativan PRN for agitation/aggression -Patient was counselled on substance abuse and desired to cut back on use -Patient was informed of the risks, benefits and side effects of the medication and patient verbally consented to taking the medications. Patient signed med consent form and was placed in chart. -NRT - nicotine gum -SW on board for discharge planning
--- NOTE | 2019-01-20 17:46 | P.CONS ---
History of Present Illness - Reason for Consult Consult date: 01/20/19 Medical management Requesting physician: Geo Long - Chief Complaint Suicidal - History of Present Illness Consultation: This is a 18-year-old patient who follows with Dr. Saunders. Patient is the mother. Occasionally smokes cigarettes. Does use marijuana center for [facility]. Is not employed. Does go to school. Patient is feeling suicidal and walked on the day [employer]. Did tell her mother that she wanted to jump off the bridge. Patient is feeling depressed and low, suicidal, she was therefore admitted to the psychiatry unit. Patient's appetite is fair no trouble with her bowel movements. She does not sleep well. No other medical issues. Review of systems: GEN.: Tired EYES: None HEENT: None NECK: None RESPIRATORY: None CARDIOVASCULAR: None GASTROINTESTINAL: None GENITOURINARY: None MUSCULOSKELETAL: None LYMPHATICS: None HEMATOLOGICAL: None PSYCHIATRY: As above NEUROLOGICAL: Decreased sleep Social history: Lives with her brother. Attends school. Smokes a few cigarettes here and there. Does use marijuana Family history: COPD Physical examination: VITAL SIGNS: 98, 62, 16, 126/56, 95% room air GENERAL: BMI 39, sitting up in a chair. EYES: Pupils equal. Conjunctiva normal. HEENT: External appearance of nose and ears normal, oral cavity grossly normal. NECK: JVD not raised; masses not palpable. HEART: First and second heart sounds are normal; no edema. LUNGS: Respiratory rate normal; clear to auscultation. ABDOMEN: Soft, nontender, liver spleen not palpable, no masses palpable. PSYCH: Alert and oriented x3; mood and affect low NEUROLOGICAL: Cranial nerves grossly intact; no facial asymmetry, power and sensation grossly intact. LYMPHATICS: No lymph nodes palpable in the axilla and neck INVESTIGATIONS, reviewed in the clinical context: White count 6.5 hemoglobin 12.7 potassium 4.1 bun 10 creatinine 0.82 UA negative Urine drug screen positive for marijuana Assessment: -Suicidal ideations -Obesity BMI 39 -Chronic nicotine dependence patient does smokes cigarettes -Marijuana use -Chronic insomnia Plan: Patient advised to use a smoking cigarettes and marijuana. 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 Patient should follow-up with her family doctor upon discharge Thank you Dr. Long Past Medical History Past Medical History: Asthma, Thyroid Disorder Additional Past Medical History / Comment(s): low iron, enlarged thyroid, severe headaches. History of Any Multi-Drug Resistant Organisms: None Reported Past Surgical History: No Surgical Hx Reported Additional Past Surgical History / Comment(s): Pt states she has never had surgery. Past Anesthesia/Blood Transfusion Reactions: No Reported Reaction Past Psychological History: ADD/ADHD, Anxiety Smoking Status: Light tobacco smoker Past Alcohol Use History: None Reported Past Drug Use History: None Reported - Past Family History Father History Unknown: Yes Additional Family Medical History / Comment(s): Pt's father is not in her life Mother Family Medical History: COPD Additional Family Medical History / Comment(s): Mother wears oxygen at night. Medications and Allergies Home Medications Medication Instructions Recorded Confirmed Type Ferrous Sulfate [Feosol] 325 mg PO DAILY 01/19/19 01/19/19 History Kurvelo 0.15/30mg 1 tab PO DAILY 01/19/19 01/19/19 History Naproxen 500 mg PO BID 01/19/19 01/19/19 History Varenicline [Chantix Continuing 1 mg PO BID 01/19/19 01/19/19 History Pack] Allergies Allergy/AdvReac Type Severity Reaction Status Date / Time ibuprofen [From Motrin] Allergy Unknown Verified 08/10/18 20:05 Sulfa (Sulfonamide Allergy Unknown Verified 08/10/18 20:05 Antibiotics) Physical Exam Vitals: Vital Signs Temp Pulse Pulse Resp BP BP Pulse Ox 01/20/19 06:49 99.4 F 70 20 109/65 01/19/19 17:42 60 16 122/62 98 01/19/19 17:40 98.6 F 60 16 117/72 98 01/19/19 13:02 98.0 F 62 16 126/56 95 Results CBC & Chem 7: 01/20/19 08:34 01/20/19 08:34 Labs: Abnormal Lab Results - Last 24 Hours (Table) 01/19/19 01/20/19 01/20/19 Range/Units 13:00 08:34 08:34 MCV 76.2 L (80.0-100.0) fL MCH 24.8 L (25.0-35.0) pg Chloride 109 H (98-107) mmol/L Carbon Dioxide 19 L (22-30) mmol/L Total Bilirubin 1.8 H (0.2-1.3) mg/dL HDL Cholesterol 37 L (40-60) mg/dL U Marijuana (THC) Screen Detected H (NotDetected)
[2019-01-20 19:11] LABS: Hemoglobin A1C 5.5 % (4.0-6.0)
[2019-01-20] MEDS: diphenhydrAMINE 50 MG CAP PO SCH (20:43)
[2019-01-20] MEDS: NICOTINE POLACRILEX 2 MG GUM BUCCAL PRN (20:45)
[2019-01-21] MEDS: busPIRone HCl 5 MG TAB PO SCH ×2 (08:13→20:25)
[2019-01-21] MEDS: lamoTRIgine 25 MG TAB PO SCH ×2 (08:13→20:25)
[2019-01-21] MEDS: NICOTINE POLACRILEX 2 MG GUM BUCCAL PRN (12:44)
[2019-01-21] MEDS: diphenhydrAMINE 50 MG CAP PO SCH (20:26)
[2019-01-22] MEDS: lamoTRIgine 25 MG TAB PO SCH ×2 (08:49→20:54)
[2019-01-22] MEDS: busPIRone HCl 5 MG TAB PO SCH ×2 (08:49→20:54)
--- NOTE | 2019-01-22 08:54 | P.PN ---
Progress Note - Text Progress Note Date: 01/21/19 IDENTIFICATION DATA: 18-year-old -[place] female admitted to [facility] with suicidal ideations. INTERVAL HISTORY: Patient reports she is less anxious. She no longer feels suicidal. She says her medications her helping her feel better. She says she always struggled with sleep due to night terrors . She claims to have slept for three hours yesterday. She MENTAL STATUS EXAMINATION: Patient appears her stated age in fair grooming and hygiene. The patient is alert and oriented 4. Motor and speech behaviors are within normal limits. Mood is "good" and affect is constricted. thought processes linear thought content is negative for suicidal or homicidal ideation. insight and judgment are improving. Denies current auditory or visual hallucinations. Denies paranoid ideations. ASSESSMENT Bipolar disorder, depressed Personality disorder unspecified rule out borderline personality disorder Cannabis use disorder Nicotine dependence PLAN: Continue Lamictal 25 mg twice a day for mood stabilization/depression. BuSpar 15 mg twice a day for anxiety. Benadryl 50 mg daily at bedtime for insomnia.
--- NOTE | 2019-01-22 10:25 | P.PN ---
Progress Note - Text Progress Note Date: 01/22/19 18-year-old -[place] female admitted to [facility] with suicidal ideations. INTERVAL HISTORY: Patient was seen today. She reports to have been sleeping good and denies symptoms of depression. She says her home environment is very stressful for her and reports being blamed for every thing she has not done. She reports being belittled by her family members. Being in the hospital she does not feel stressed. She says she likes to draw and spends time by the water when she feels better and states she doesn't have many friends. when she feels depressed she looses motivation. She says her goal is to get her GED and says she is 12 credits short of getting her degree. She says her goal is to get her GED by September or October of 2019. MENTAL STATUS EXAMINATION: Patient appears her stated age in fair grooming and hygiene. The patient is alert and oriented 4. Motor and speech behaviors are within normal limits. Mood is "good" and affect is constricted. thought processes linear thought content is negative for suicidal or homicidal ideation. insight and judgment are improving. Denies current auditory or visual hallucinations. Denies paranoid ideations. ASSESSMENT Bipolar disorder, depressed Personality disorder unspecified rule out borderline personality disorder Cannabis use disorder Nicotine dependence PLAN: Continue Lamictal 25 mg twice a day for mood stabilization/depression. BuSpar 15 mg twice a day for anxiety. Benadryl 50 mg daily at bedtime for insomnia.
[2019-01-22] MEDS: ACETAMINOPHEN TAB 325 MG TAB PO PRN ×2 (12:15→22:41)
[2019-01-22] MEDS: diphenhydrAMINE 50 MG CAP PO SCH (20:54)
[2019-01-23] MEDS: FERROUS SULFATE 325 MG TAB PO SCH (08:28)
[2019-01-23] MEDS: busPIRone HCl 5 MG TAB PO SCH ×2 (08:28→21:24)
[2019-01-23] MEDS: lamoTRIgine 25 MG TAB PO SCH ×2 (08:29→21:24)
--- NOTE | 2019-01-23 11:37 | P.PN ---
Progress Note - Text Progress Note Date: 01/23/19 Interval History: Patient was seen during groups participating in engaging with other patients on the unit and was agreeable to speak to technical document writer in the office. Patient states that she had a better weekend and claims that her mother came to visit her. She states that another patient was sharing information about her to others and her claims that her mother got upset about that. She states that her visit with her mother went well there he was able to communicate. She states that she had a g ood night last night and slept to the night and wants to remain on the same nighttime medication. She states that she feels her mood improving and her anxiety as well. Patient was again informed of the potential risk of Alok David's rash and the need for medication compliant patient verbally understood and agreed. She states that she has fair energy and fair appetite and has been going to groups and finding them helpful. At this time patient denies any suicidal or homical ideations, intent or plan. Patient denies any auditory, visual hallucinations and denies any paranoia or delusions. Patient denies any side effects from the medications and has been compliant with meds. Mental Status Exam: General Appearance: Patient appears to be stated age is alert, directable and cooperative. Patient is overweight. Patient has improved hygiene and poor grooming. Behavior: Patient is calmly seated without any agitated behavior. Speech: Patient's speech is fluent and nonpressured. Mood/Affect: Patient reports their mood is improving mildly, affect is congruent Suicidality/Homicidality: Patient denies having any suicidal or homicidal ideation intent or plan. Perceptions: Patient denies any auditory or visual hallucinations. Though content/process: There is no evidence of any delusional thought content and thought process is linear and goal-directed. Memory and concentration: AOX3, grossly intact for the purposes of this session Judgment and insight: Poor, improving mildly Assessment Bipolar disorder, depressed Personality disorder unspecified rule out borderline personality disorder Cannabis use disorder Nicotine dependence Plan: -Patient continues to meet criteria for inpatient psychiatric admission for symptom stabilization and safety. Patient has signed adult voluntary form and medication consent and was placed in patient's chart. -Medications: Will continue increasing Lamictal to 25 mg +50 mg for mood stabilization/depression. Patient was again informed about the risks of possible Roblero-David's rash and how it is an urgent medical problem which need to be addressed and patient was advised to monitor her skin daily for any rashes. Will continue on these bar 15 mg twice a day for anxiety. Continue with Benadryl 50 mg at bedtime for insomnia. -When necessary Geodon and Ativan for agitation/aggression. -NRT -nicotine, -SW on board for discharge planning. Likely discharge before the end the week.
[2019-01-23] MEDS: ACETAMINOPHEN TAB 325 MG TAB PO PRN (18:25)
[2019-01-23] MEDS: diphenhydrAMINE 50 MG CAP PO SCH (21:25)
[2019-01-24] MEDS: busPIRone HCl 5 MG TAB PO SCH ×2 (08:49→20:55)
[2019-01-24] MEDS: lamoTRIgine 25 MG TAB PO SCH ×2 (08:49→20:55)
[2019-01-24] MEDS: FERROUS SULFATE 325 MG TAB PO SCH (08:49)
--- NOTE | 2019-01-24 13:42 | P.PN ---
Progress Note - Text Progress Note Date: 01/24/19 Interval History: Patient was seen after group and was doing word search watching TV and was agr eeable to speak to software writer in the office. Patient states that she is feeling sad today as she spoke with her mother over the phone and found out that her mother would not be able to visit her as she is working during visiting times. She endorsed feeling better and calmer on the medications and felt like she is able to concentrate more and not feel distressed quickly. She claims her anxiety is improving mildly. She states that she had a good night last night and slept to the night. Patient was again informed of the potential risk of Alok David's rash and the need for medication compliant patient verbally understood and agreed. Patient denied any rash at this time and claims she is checking daily. She states that she has fair energy and fair appetite and has been going to groups and finding them helpful. At this time patient denies any suicidal or homical ideations, intent or plan. Patient denies any auditory, visual hallucinations and denies any paranoia or delusions. Patient denies any side effects from the medications and has been compliant with meds. Mental Status Exam: General Appearance: Patient appears to be stated age is alert, directable and cooperative. Patient is overweight. Patient has improved hygiene and poor grooming. Behavior: Patient is calmly seated without any agitated behavior. Speech: Patient's speech is fluent and nonpressured. Mood/Affect: Patient reports their mood is improving mildly, affect is congruent Suicidality/Homicidality: Patient denies having any suicidal or homicidal ideation intent or plan. Perceptions: Patient denies any auditory or visual hallucinations. Though content/process: There is no evidence of any delusional thought content and thought process is linear and goal-directed. Memory and concentration: AOX3, grossly intact for the purposes of this session Judgment and insight: Poor, improving mildly Assessment Bipolar disorder, depressed Personality disorder unspecified rule out borderline personality disorder Cannabis use disorder Nicotine dependence Plan: -Patient continues to meet criteria for inpatient psychiatric admission for symptom stabilization and safety. Patient has signed adult voluntary form and medication consent and was placed in patient's chart. -Medications: Will continue with Lamictal to 25 mg +50 mg for mood stabilization/depression. Plan to increase as tolerated. Patient was again informed about the risks of possible Roblero-David's rash and how it is an urgent medical problem which need to be addressed and patient was advised to monitor her skin daily for any rashes. Will continue on these bar 15 mg twice a day for anxiety. Continue with Benadryl 50 mg at bedtime for insomnia. -When necessary Geodon and Ativan for agitation/aggression. -NRT -nicotine patch -SW on board for discharge planning. Likely discharge before the end the week.
[2019-01-24] MEDS: diphenhydrAMINE 50 MG CAP PO SCH (20:54)
[2019-01-25] MEDS: lamoTRIgine 25 MG TAB PO SCH ×2 (08:37→21:20)
[2019-01-25] MEDS: busPIRone HCl 5 MG TAB PO SCH ×2 (08:37→21:20)
[2019-01-25] MEDS: FERROUS SULFATE 325 MG TAB PO SCH (08:37)
--- NOTE | 2019-01-25 10:00 | P.PN ---
Progress Note - Text Progress Note Date: 01/25/19 Interval History: Patient was seen wandering the halls and was agreeable to speak to procedure writer in the office. Patient states that she is feeling much better today as she is feeling like to medications are helping her. She states her anxiety and mood are improving. Patient spoke about talking with her mother who is not able to come and visit her due to her work schedule however patient is optimistic and positive about being discharged later on this week. She states that she is going to ask one of her friends to come and visit her today. She states that she had a good night last night and slept throughout the night except for minor interruptions. Patient denied any rash at this time and claims she is checking daily. She states that she has fair energy and fair appetite. She claims that she is going to groups and finding them helpful to work on her coping skills and distress tolerance. At this time patient denies any suicidal or homical ideations, intent or plan. Patient denies any auditory, visual hallucinations and denies any paranoia or delusions. Patient denies any side effects from the medications and has been compliant with meds. Mental Status Exam: General Appearance: Patient appears to be stated age is alert, directable and cooperative. Patient is overweight. Patient has improved hygiene and poor grooming. Behavior: Patient is calmly seated without any agitated behavior. Speech: Patient's speech is fluent and nonpressured. Mood/Affect: Patient reports their mood is improving, affect is congruent Suicidality/Homicidality: Patient denies having any suicidal or homicidal ideation intent or plan. Perceptions: Patient denies any auditory or visual hallucinations. Though content/process: There is no evidence of any delusional thought content and thought process is linear and goal-directed. Memory and concentration: AOX3, grossly intact for the purposes of this session Judgment and insight: Fair, improving mildly Assessment Bipolar disorder, depressed Personality disorder unspecified rule out borderline personality disorder Cannabis use disorder Nicotine dependence Plan: -Patient continues to meet criteria for inpatient psychiatric admission for symptom stabilization and safety. Patient has signed adult voluntary form and medication consent and was placed in patient's chart. -Medications: Will continue increasing Lamictal to 50 mg +50 mg for mood stabilization/depression. Patient was again informed about the risks of possible Roblero-David's rash and how it is an urgent medical problem which need to be addressed and patient was advised to monitor her skin daily for any rashes. Will continue on Buspar 15 mg twice a day for anxiety. Continue with Benadryl 50 mg at bedtime for insomnia. -When necessary Geodon and Ativan for agitation/aggression. -NRT -nicotine patch -SW on board for discharge planning. Likely discharge before the end the week.
[2019-01-25] MEDS: diphenhydrAMINE 50 MG CAP PO SCH (21:20)
[2019-01-26] MEDS: ACETAMINOPHEN TAB 325 MG TAB PO PRN ×2 (00:12→11:09)
[2019-01-26] MEDS: FERROUS SULFATE 325 MG TAB PO SCH (08:33)
[2019-01-26] MEDS: busPIRone HCl 5 MG TAB PO SCH ×2 (08:33→20:41)
[2019-01-26] MEDS ORDERED: lamoTRIgine 25 MG TAB PO SCH (09:00)
--- NOTE | 2019-01-26 10:08 | P.PN ---
Progress Note - Text Progress Note Date: 01/26/19 Interval History: Patient was seen wandering the halls and was agreeable to speak to typewriters functional tester in the office. Patient appears to have a brighter affect this morning and was more talkative. She states that she is feeling much better today as she is feeling like to medications are helping her. She claims that her mood and anxiety are improving. She states that she had a scary night last night as a new patient arrived on the unit and was very intrusive and aggressive with her and she did not know how to respond as the patient was acting bizarre, however patient did sleep through the night. Patient denied any rash at this time and claims she is checking daily. She states that she has fair energy and fair appetite. She claims that she is going to groups and finding them helpful. At this time patient denies any suicidal or homical ideations, intent or plan. Patient denies any auditory, visual hallucinations and denies any paranoia or delusions. Patient denies any side effects from the medications and has been compliant with meds. Mental Status Exam: General Appearance: Patient appears to be stated age is alert, directable and cooperative. Patient is overweight. Improved hygiene and poor grooming. Behavior: Patient is calmly seated without any agitated behavior. Speech: Patient's speech is fluent and nonpressured. Mood/Affect: Patient reports their mood is improving, affect is congruent Suicidality/Homicidality: Patient denies having any suicidal or homicidal ideation intent or plan. Perceptions: Patient denies any auditory or visual hallucinations. Though content/process: There is no evidence of any delusional thought content and thought process is linear and goal-directed. Memory and concentration: AOX3, grossly intact for the purposes of this session Judgment and insight: Fair, improving mildly Assessment Bipolar disorder, depressed Personality disorder unspecified rule out borderline personality disorder Cannabis use disorder Nicotine dependence Plan: -Patient continues to meet criteria for inpatient psychiatric admission for symptom stabilization and safety. Patient has signed adult voluntary form and medication consent and was placed in patient's chart. -Medications: Will continue with Lamictal to 50 mg +50 mg for mood stabilization/depression and it is to be switched to 100 mg daily. Patient was again informed about the risks of possible Roblero-David's rash and how it is an urgent medical problem which need to be addressed and patient was advised to monitor her skin daily for any rashes. Will continue on Buspar 15 mg twice a day for anxiety. Continue with Benadryl 50 mg at bedtime for insomnia. -When necessary Geodon and Ativan for agitation/aggression. -NRT -nicotine patch -SW on board for discharge planning. Discharge planned for tomorrow.
[2019-01-26] MEDS ORDERED: NAPROXEN 250 MG TAB PO PRN (12:43)
[2019-01-26] MEDS: diphenhydrAMINE 50 MG CAP PO SCH (20:42)
[2019-01-26] MEDS ORDERED: lamoTRIgine 25 MG TAB PO ONE (21:00)
[2019-01-27 06:47] VITALS: RESP 18; TEMP 98.1
[2019-01-27] MEDS: FERROUS SULFATE 325 MG TAB PO SCH (08:13)
[2019-01-27] MEDS: busPIRone HCl 5 MG TAB PO SCH (08:13)
[2019-01-27] MEDS ORDERED: lamoTRIgine 100 MG TAB PO SCH (09:00)
[2019-01-27 09:33] VITALS: BP 129/59; PULSE 68
--- NOTE | 2019-01-27 11:19 | DS ---
DISCHARGE SUMMARY DATE OF ADMISSION: 01/19/2019 DATE OF DISCHARGE: 01/27/2019 ADMISSION AND DISCHARGE DIAGNOSES: 1. Bipolar affective disorder, depressed. 2. Personality disorder unspecified. 3. Cannabis use disorder. 4. Nicotine dependence. HISTORY OF PRESENTING ILLNESS: The patient is a 18-year-old female. She presented to the ED with depression and suicidal thinking. She had threatened to jump off the bridge. She had hopeless and helpless feeling. She had a lot of anger. She described being depressed going back to age 12 with increased depression in the last few months prior to admission. There were family stress issues. She talked about believing she would be homeless. She had a history of a number of psychiatric hospitalizations in the past. She was admitted for further evaluation. PAST MEDICAL HISTORY, REVIEW OF SYSTEMS AND PHYSICAL EXAM: As per medical consultation of Dr. Heath. MENTAL STATUS EXAM: Patient showed poor hygiene and grooming. She was tearful throughout the interview. Her mood was depressed. She reported no intent towards harm to self or others at the time of admission. Thought process was clear. COURSE OF HOSPITALIZATION: Patient was admitted for comprehensive medical, psychiatric and psychosocial evaluation. She was engaged in individual and group therapeutic activities. The patient was started on Lamictal 25 mg twice a day. It is noted that Dr. 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 There was no note by Dr. Long in regards to initiating a higher than standard dose. The patient was also started on BuSpar 15 mg twice a day. Early on in her hospital stay, the patient reported some improvement in her mood. She was not noting any thoughts about suicide. She had difficulty with sleep and had some intense negative dreaming. It is noted that Dr. 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 The patient had a visit from her mother, which she said went well. She had some other telephone contacts that did set off some stress for her. She noted that as the hospitalization progressed that anxiety symptoms seem to be better and less intense. Dr. Long increased the patient's Lamictal on day 6 of the hospitalization to 50 mg twice a day. There was not documentation in regards to the more rapid titration of Lamictal compared to standard recommendations. Toward the end of her hospital stay, the patient generally did fairly well in her mood. She had some difficulty on the unit where she experienced a stressful situation with another patient. Other than that, she seemed to make good improvement. Dr. Long documented that she was stable for discharge. CONDITION AT DISCHARGE: The patient's mood was improved. Anxiety was reduced. She reported no thoughts of harm to self or others. She tolerated her psychotropic medications. RECOMMENDATIONS AND FOLLOWUP: The patient will be continued on Lamictal 100 mg a day as indicated by Dr. Long. In addition, she will be continued on BuSpar 15 mg twice a day. She [facility]2019 at 10:30 a.m. BEAN / GALLON: [id number] /
== END 2019-01-27 11:45 | disposition home or self-care (01) | DRG 885 ==
LOC: EC 12:46 → SUPCPDRO 12:46 → 3MHU 17:23
PROVIDERS: ADMIT Psychiatry & Neurology Psychiatry; ATTEND Psychiatry & Neurology Psychiatry
DX: F31.30 Bipolar disorder, current episode depressed, mild or moderate severity, unspecified (principal); R45.851 Suicidal ideations; Z91.5 Personal history of self-harm; F60.9 Personality disorder, unspecified; F12.10 Cannabis abuse, uncomplicated; F51.4 Sleep terrors [night terrors]; F41.9 Anxiety disorder, unspecified; F51.04 Psychophysiologic insomnia; F90.9 Attention-deficit hyperactivity disorder, unspecified type; R51 Headache; E07.9 Disorder of thyroid, unspecified; J45.909 Unspecified asthma, uncomplicated; E66.9 Obesity, unspecified; F17.210 Nicotine dependence, cigarettes, uncomplicated; Z71.6 Tobacco abuse counseling; Z79.1 Long term (current) use of non-steroidal anti-inflammatories (NSAID); Z79.3 Long term (current) use of hormonal contraceptives; Z79.899 Other long term (current) drug therapy; Z88.6 Allergy status to analgesic agent; Z88.2 Allergy status to sulfonamides; Z82.5 Family history of asthma and other chronic lower respiratory diseases
CPT/HCPCS: 80053; 80061; 80306; 81003; 81025; 82075; 83036; 84443; 85025; 99285

== ENCOUNTER 2019-06-08 01:40 | Emergency (ER) | payer OTHER ==
[2019-06-08 02:14] LABS: Appearance,Urine Clear (Clear); Bilirubin,Urine Negative (Negative); Blood,Urine Negative (Negative); Color,Urine Light Yellow; Glucose,Urine (UA) Negative (Negative); Ketones,Urine Negative (Negative); Leukocyte Esterase,Urine Negative (Negative); Nitrite,Urine Negative (Negative); PH, Urine 5.5 (5.0-8.0); Protein,Urine Negative (Negative); Urobilinogen,Urine <2.0 mg/dL (<2.0)
[2019-06-08 02:25] LABS: Amphetamine Screen,Urine Not Detected (NotDetected); Barbiturate Screen,Urine Not Detected (NotDetected); Benzodiazepines Screen,Urine Not Detected (NotDetected); Cocaine Screen,Urine Not Detected (NotDetected); Methadone Screen, Urine Not Detected (NotDetected); Opiate Screen,Urine Not Detected (NotDetected); Oxycodone Screen, Urine Not Detected (NotDetected); Phencyclidine Screen,Urine Not Detected (NotDetected); Tricyclic Antidepressant,Urine Not Detected (NotDetected); Urn Cannabinoid Scrn Detected (NotDetected)
--- NOTE | 2019-06-08 04:00 | ED ---
Psych HPI - General Chief Complaint: Psychiatric Symptoms Stated Complaint: Mental Health Time Seen by Provider: 06/08/19 01:55 Source: patient, police Mode of arrival: ambulatory - History of Present Illness Initial Comments: This patient is a 18-year-old woman who is brought to have psychiatric evaluation. The patient admits that she was having a stressful time and she made some suicidal statements but states that she was just angry at the time. She states she is feeling better now and does not feel like she wants to harm herself. She does admit to history of previous episodes of depression and also previous cutting behavior. She has not engaged in any self injury today. MD Complaint: suicidal ideation -: hour(s) History of same: Yes Improves With: none Worsens With: none Context: significant life stressor Associated Symptoms: denies other symptoms Treatments Prior to Arrival: none - Related Data Home Medications Medication Instructions Recorded Confirmed Ferrous Sulfate [Iron (65 MG 325 mg PO DAILY 01/19/19 01/27/19 Elemental)] Naproxen 500 mg PO BID 01/19/19 01/27/19 Varenicline [Chantix Continuing 1 mg PO BID 01/19/19 01/27/19 Pack] Previous Rx's Medication Instructions Recorded Nicotine Polacrilex [Nicorette] 2 mg BUCCAL Q4HR PRN gum 01/27/19 busPIRone HCl [Buspar] 15 mg PO BID #60 tab 01/27/19 lamoTRIgine [LaMICtal] 100 mg PO DAILY #30 tab 01/27/19 Allergies Allergy/AdvReac Type Severity Reaction Status Date / Time ibuprofen [From Motrin] Allergy Unknown Verified 06/08/19 01:51 Sulfa (Sulfonamide Allergy Unknown Verified 06/08/19 01:51 Antibiotics) Review of Systems ROS Statement: Those systems with pertinent positive or pertinent negative responses have been documented in the HPI. ROS Other: All systems not noted in ROS Statement are negative. Constitutional: Denies: fever Respiratory: Denies: cough, dyspnea Cardiovascular: Denies: chest pain, syncope Gastrointestinal: Denies: abdominal pain, vomiting, diarrhea Musculoskeletal: Denies: back pain Skin: Denies: rash Neurological: Denies: headache, weakness Psychiatric: Reports: suicidal thoughts. Denies: depression, auditory hallucinations, visual hallucinations, homicidal thoughts Past Medical History Past Medical History: Asthma, Thyroid Disorder Additional Past Medical History / Comment(s): low iron, enlarged thyroid, severe headaches. History of Any Multi-Drug Resistant Organisms: None Reported Past Surgical History: No Surgical Hx Reported Additional Past Surgical History / Comment(s): Pt states she has never had surgery. Past Anesthesia/Blood Transfusion Reactions: No Reported Reaction Past Psychological History: ADD/ADHD, Anxiety Smoking Status: Current every day smoker Past Alcohol Use History: None Reported Past Drug Use History: Marijuana - Past Family History Father History Unknown: Yes Additional Family Medical History / Comment(s): Pt's father is not in her life Mother Family Medical History: COPD Additional Family Medical History / Comment(s): Mother wears oxygen at night. General Exam Limitations: no limitations General appearance: alert, in no apparent distress Head exam: Present: atraumatic, normocephalic Eye exam: Present: normal appearance. Absent: scleral icterus, conjunctival injection ENT exam: Present: normal oropharynx Respiratory exam: Present: normal lung sounds bilaterally. Absent: respiratory distress, wheezes, rales, rhonchi, stridor Cardiovascular Exam: Present: regular rate, normal rhythm, normal heart sounds. Absent: systolic murmur, diastolic murmur, rubs, gallop GI/Abdominal exam: Present: soft. Absent: tenderness Neurological exam: Present: alert Psychiatric exam: Absent: depressed, agitated, anxious, flat affect, manic, homicidal ideation, suicidal ideation Skin exam: Present: warm, dry, intact, normal color. Absent: rash Course Vital Signs 06/08/19 01:47 Temperature 98.4 F Pulse Rate 75 Respiratory 20 Rate Blood Pressure 114/71 O2 Sat by Pulse 99 Oximetry Medical Decision Making - Medical Decision Making Patient is 18-year-old woman here for psychiatric evaluation after she had made some suicidal statements. The patient states that she was angry at the time. She states that she is feeling better now and she does contract for safety. Patient is seen by EPS and safety plan is presented - Lab Data Lab Results 06/08/19 06/08/19 Range/Units 02:05 02:05 Urine Color Light Yellow Urine Appearance Clear (Clear) Urine pH 5.5 (5.0-8.0) Ur Specific [place] 1.010 (1.001-1.035) Urine Protein Negative (Negative) Urine Glucose (UA) Negative (Negative) Urine Ketones Negative (Negative) Urine Blood Negative (Negative) Urine Nitrite Negative (Negative) Urine Bilirubin Negative (Negative) Urine Urobilinogen <2.0 (<2.0) mg/dL Ur Leukocyte Esterase Negative (Negative) Urine HCG, Qual Not Detected (Not Detectd) Urine Opiates Screen Not Detected (NotDetected) Ur Oxycodone Screen Not Detected (NotDetected) Urine Methadone Screen Not Detected (NotDetected) Ur Propoxyphene Screen Not Detected (NotDetected) Ur Barbiturates Screen Not Detected (NotDetected) U Tricyclic Antidepress Not Detected (NotDetected) Ur Phencyclidine Scrn Not Detected (NotDetected) Ur Amphetamines Screen Not Detected (NotDetected) U Methamphetamines Scrn Not Detected (NotDetected) U Benzodiazepines Scrn Not Detected (NotDetected) Urine Cocaine Screen Not Detected (NotDetected) U Marijuana (THC) Screen Detected H (NotDetected) Disposition Clinical Impression: Adjustment reaction of adult life Disposition: HOME SELF-CARE Condition: Good Instructions (If sedation given, give patient instructions): Mood Disorders (ED) Is patient prescribed a controlled substance at d/c from ED?: No Referrals: None,Stated [Primary Care Provider] - 1-2 days
[2019-06-08 04:10] VITALS: BP 124/74; PULSE 74; RESP 18; TEMP 97.7
== END 2019-06-08 04:09 | disposition home or self-care (01) ==
LOC: EC 01:40
DX: F43.20 Adjustment disorder, unspecified (principal); R45.851 Suicidal ideations; F17.200 Nicotine dependence, unspecified, uncomplicated; Z91.5 Personal history of self-harm; Z79.899 Other long term (current) drug therapy; Z88.6 Allergy status to analgesic agent; Z88.2 Allergy status to sulfonamides
CPT/HCPCS: 80306; 81003; 81025; 82075; 99285

== ENCOUNTER 2020-06-03 14:28 | Emergency (ER) | payer OTHER ==
[2020-06-03 14:40] VITALS: BP 122/82; PULSE 64; RESP 18; TEMP 98.6
--- NOTE | 2020-06-03 15:11 | ED ---
Wound/Laceration HPI - General Chief Complaint: Wound/Laceration Stated Complaint: Infected wound on arm Time Seen by Provider: 06/03/20 14:45 Source: patient, RN notes reviewed Mode of arrival: ambulatory Limitations: no limitations - History of Present Illness Initial Comments: Patient is a 19-year-old female presents emergency Department with a skin infection of the back of her right tricep. She noted that 5 days ago she fell and hit her arm on a side table. She noted that the first day she had a small cut. At that she started squeezing and then light and post came out. Today she noted that there was a 1 cm x 1 cm scab over where the wound was. She said that she was squeezing last night again had pus and blood coming out. She noted that she did clean it with water or hydrogen peroxide and Neosporin. She said the pain was mild at the moment but with squeezing it did increase in pain. She denied wanting anything for the pain. She denied any fever fatigue chills headache shortness of breath nausea vomiting diarrhea constipation. - Related Data Home Medications Medication Instructions Recorded Confirmed Ferrous Sulfate [Iron (65 MG 325 mg PO DAILY 01/19/19 01/27/19 Elemental)] Naproxen 500 mg PO BID 01/19/19 01/27/19 Varenicline [Chantix Continuing 1 mg PO BID 01/19/19 01/27/19 Pack] Previous Rx's Medication Instructions Recorded Nicotine Polacrilex [Nicorette] 2 mg BUCCAL Q4HR PRN gum 01/27/19 busPIRone HCl [Buspar] 15 mg PO BID #60 tab 01/27/19 lamoTRIgine [LaMICtal] 100 mg PO DAILY #30 tab 01/27/19 Doxycycline Monohydrate [Monodox] 100 mg PO Q12HR #14 cap 06/03/20 Allergies Allergy/AdvReac Type Severity Reaction Status Date / Time ibuprofen [From Motrin] Allergy Unknown Verified 06/03/20 14:40 Sulfa (Sulfonamide Allergy Unknown Verified 06/03/20 14:40 Antibiotics) Review of Systems ROS Statement: Those systems with pertinent positive or pertinent negative responses have been documented in the HPI. ROS Other: All systems not noted in ROS Statement are negative. Past Medical History Past Medical History: Asthma, Thyroid Disorder Additional Past Medical History / Comment(s): low iron, enlarged thyroid, severe headaches. History of Any Multi-Drug Resistant Organisms: None Reported Past Surgical History: No Surgical Hx Reported Additional Past Surgical History / Comment(s): Pt states she has never had surgery. Past Anesthesia/Blood Transfusion Reactions: No Reported Reaction Past Psychological History: ADD/ADHD, Anxiety Smoking Status: Current every day smoker Past Alcohol Use History: None Reported Past Drug Use History: Marijuana - Past Family History Father History Unknown: Yes Additional Family Medical History / Comment(s): Pt's father is not in her life Mother Family Medical History: COPD Additional Family Medical History / Comment(s): Mother wears oxygen at night. General Exam Limitations: no limitations General appearance: alert, in no apparent distress Head exam: Present: atraumatic, normocephalic, normal inspection Eye exam: Present: normal appearance, PERRL, EOMI. Absent: scleral icterus, conjunctival injection, periorbital swelling ENT exam: Present: normal exam, mucous membranes moist Neck exam: Present: normal inspection. Absent: tenderness, meningismus, lymphadenopathy Respiratory exam: Present: normal lung sounds bilaterally. Absent: respiratory distress, wheezes, rales, rhonchi, stridor Cardiovascular Exam: Present: regular rate, normal rhythm, normal heart sounds. Absent: systolic murmur, diastolic murmur, rubs, gallop, clicks GI/Abdominal exam: Present: soft, normal bowel sounds. Absent: distended, tenderness, guarding, rebound, rigid Extremities exam: Present: normal inspection, full ROM, normal capillary refill. Absent: tenderness, pedal edema, joint swelling, calf tenderness Neurological exam: Present: alert, oriented X3, CN II-XII intact Psychiatric exam: Present: normal affect, normal mood Skin exam: Present: warm, dry, intact, normal color, abrasion (To back of right tricep, mild tenderness to palpation, no seeping or serosanguineous fluid. Localized inflammation.). Absent: rash Course Vital Signs 06/03/20 14:36 Temperature 98.6 F Pulse Rate 64 Respiratory 18 Rate Blood Pressure 122/82 O2 Sat by Pulse 97 Oximetry Medical Decision Making - Medical Decision Making [age] female complaining of a skin infection on her back right wrist. Area was not abscessed no palpable nodule. Case discussed with Dr. Dozier, was decided the patient to discharge home with oral antibiotics. Disposition Clinical Impression: Cellulitis Disposition: HOME SELF-CARE Condition: Stable Additional Instructions: Please return to the Emergency Department if symptoms worsen or any other concerns. Follow-up with primary care in 1-2 days. Take antibiotics as prescribed. Wash area with warm water and gentle soap had dried cover with Neosporin as needed. Do not pick, squeeze at affected area. Prescriptions: Doxycycline Monohydrate [Monodox] 100 mg PO Q12HR #14 cap Is patient prescribed a controlled substance at d/c from ED?: No Referrals: Eduardo Saunders DO [Primary Care Provider] - 1-2 days Time of Disposition: 15:23
== END 2020-06-03 15:32 | disposition home or self-care (01) ==
LOC: EC 14:28
DX: L03.113 Cellulitis of right upper limb (principal); F17.200 Nicotine dependence, unspecified, uncomplicated; Z88.2 Allergy status to sulfonamides; Z88.6 Allergy status to analgesic agent; W18.30XA Fall on same level, unspecified, initial encounter
CPT/HCPCS: 99282

== ENCOUNTER 2023-09-05 21:15 | Emergency (ER) | payer OTHER ==
[2023-09-05 21:36] VITALS: RESP 18
--- NOTE | 2023-09-05 21:41 | ED ---
Abdominal Pain HPI - General Source: patient, RN notes reviewed Mode of arrival: ambulatory Limitations: no limitations <Wandy Lange - Last Filed: 09/05/23 21:37> <Tomy Louis - Last Filed: 09/27/23 06:44> - General Chief Complaint: Abdominal Pain Stated Complaint: R flank pain-preg. unsure how far Time Seen by Provider: 09/05/23 21:32 - History of Present Illness Initial Comments: Quick noteis a 22-year-old female presents emergency department chief complaint of left lower abdominal cramping this morning. Patient states that she is but is unsure how far along she is. States that her last menstrual cycle started on June 24. She denies vaginal bleeding, discharge, urinary frequency, urgency, nausea, vomiting, fatigue. Patient was seen at [facility] 2 weeks ago for vaginal bleeding, states that she was not informed of results from testing. (Wandy Lange) - Related Data Home Medications Medication Instructions Recorded Confirmed Ferrous Sulfate [Iron (65 MG 325 mg PO DAILY 01/19/19 01/27/19 Elemental)] Naproxen 500 mg PO BID 01/19/19 01/27/19 Varenicline [Chantix Continuing 1 mg PO BID 01/19/19 01/27/19 Pack] Previous Rx's Medication Instructions Recorded Nicotine Gum (Polacrilex) 2 mg BUCCAL Q4HR PRN gum 01/27/19 [Nicorette] busPIRone HCl [Buspar] 15 mg PO BID #60 tab 01/27/19 lamoTRIgine [LaMICtal] 100 mg PO DAILY #30 tab 01/27/19 Doxycycline Monohydrate [Monodox] 100 mg PO Q12HR #14 cap 06/03/20 Amoxicillin 500 mg PO Q8H #21 capsule 09/06/23 Allergies Allergy/AdvReac Type Severity Reaction Status Date / Time ibuprofen [From Motrin] Allergy Unknown Verified 09/05/23 21:29 Sulfa (Sulfonamide Allergy Unknown Verified 09/05/23 21:29 Antibiotics) Review of Systems ROS Other: All systems not noted in ROS Statement are negative. <Wandy Lange - Last Filed: 09/05/23 21:37> ROS Other: All systems not noted in ROS Statement are negative. <Tomy Louis - Last Filed: 09/27/23 06:44> ROS Statement: Those systems with pertinent positive or pertinent negative responses have been documented in the HPI. Past Medical History Past Medical History: Asthma, Thyroid Disorder Additional Past Medical History / Comment(s): low iron, enlarged thyroid, severe headaches. History of Any Multi-Drug Resistant Organisms: None Reported Past Surgical History: No Surgical Hx Reported Additional Past Surgical History / Comment(s): Pt states she has never had surgery. Past Anesthesia/Blood Transfusion Reactions: No Reported Reaction Past Psychological History: ADD/ADHD, Anxiety Smoking Status: Current every day smoker Past Alcohol Use History: None Reported Past Drug Use History: Marijuana - Past Family History Father History Unknown: Yes Additional Family Medical History / Comment(s): Pt's father is not in her life Mother Family Medical History: COPD Additional Family Medical History / Comment(s): Mother wears oxygen at night. <Wandy Lange - Last Filed: 09/05/23 21:37> General Exam Limitations: no limitations <Wandy Lange - Last Filed: 09/05/23 21:37> Limitations: no limitations General appearance: alert, in no apparent distress Head exam: Present: atraumatic, normocephalic Eye exam: Present: normal appearance. Absent: scleral icterus, conjunctival injection Respiratory exam: Present: normal lung sounds bilaterally. Absent: respiratory distress, wheezes, rales, rhonchi, stridor, accessory muscle use Cardiovascular Exam: Present: regular rate, normal rhythm, normal heart sounds. Absent: systolic murmur, diastolic murmur, rubs, gallop GI/Abdominal exam: Present: soft. Absent: distended, tenderness, guarding, r ebound, rigid, mass Extremities exam: Present: normal inspection, normal capillary refill. Absent: pedal edema, calf tenderness Back exam: Present: normal inspection. Absent: CVA tenderness (R), CVA tenderness (L) Neurological exam: Present: alert Skin exam: Present: warm, dry, intact, normal color. Absent: rash <Tomy Louis - Last Filed: 09/27/23 06:44> - General Exam Comments Initial Comments: Visual Physical Exam Vital signs reviewed General: Well-appearing, nontoxic, no acute distress. Head: Normocephalic, atraumatic Eyes: PERRLA, EOMI ENT: Airway patent Chest: Nonlabored breathing Skin: No visual rash, normal skin tone Neuro: Alert and oriented 3 Musculoskeletal: No gross abnormalities (Wandy Lange) Course Vital Signs 09/05/23 09/05/23 09/06/23 21:24 23:35 01:24 Temperature 98.9 F 98.8 F Pulse Rate 70 64 72 Respiratory 18 18 18 Rate Blood Pressure 129/71 112/63 118/64 O2 Sat by Pulse 99 99 100 Oximetry Medical Decision Making <Wandy Lange - Last Filed: 09/05/23 21:37> - Lab Data Result diagrams: 09/05/23 23:13 09/05/23 23:13 <Tomy Louis - Last Filed: 09/27/23 06:44> - Medical Decision Making I completed the quick note portion of this chart signed Wandy Lange PA-C (Wandy Lange) The patient had pelvic ultrasound that I interpreted to show early intrauterine . Was pt. sent in by a medical professional or institution ([facility] Rowley, [employer], urgent care, hospital, or jail...) When possible be specific @ -[No] Did you speak to anyone other than the patient for history (EMS, parent, family, police, friend...)? What history was obtained from this source @ -[No] Did you review nursing and triage notes (agree or disagree)? Why? @ -[I reviewed and agree with nursing and triage notes] Were old charts reviewed (outside hosp., previous admission, EMS record, old EKG, old radiological studies, urgent care reports/EKG's, jail records)? Report findings @ -[No old charts were reviewed] Differential Diagnosis (chest pain, altered mental status, abdominal pain women, abdominal pain men, vaginal bleeding, weakness, fever, dyspnea, syncope, headache, dizziness, GI bleed, back pain, seizure, CVA, palpatations, mental health, musculoskeletal)? @ -[Differential Abdominal Pain Women: Appendicitis, Cholecystitis, diverticulosis, ischemic bowel, pancreatitis, hepatitis, UTI, gastroenteritis, AAA, incarcerated hernia, bowel obstruction, constipation, inflammatory bowel, hepatitis, peptic ulcer disease, splenic infarction, perforated viscus, vulvitis, ovarian torsion, PID, kidney stone, placenta abruption, this is not meant to be an all-inclusive list EKG interpreted by me (3pts min.). @ -[As above] X-rays interpreted by me (1pt min.). @ -[None done] CT interpreted by me (1pt min.). @ -[None done] U/S interpreted by me (1pt. min.). @ -[Interpreted as above What testing was considered but not performed or refused? (CT, X-rays, U/S, labs)? Why? @ -[None] What meds were considered but not given or refused? Why? @ -[None] Did you discuss the management of the patient with other professionals (ferny cheatham i.e. , PA, [employer], lab, RT, psych nurse, school social worker, lieutenant governor, teacher, navy senior officer, employment case manager)? Give summary @ -[No] Was smoking cessation discussed for >3mins.? @ -[No] Was critical care preformed (if so, how long)? @ -[No] Were there social determinants of health that impacted care today? How? (Homelessness, low income, unemployed, alcoholism, drug addiction, transportatio n, low edu. Level, literacy, decrease access to med. care, care home, rehab)? @ -[No] Was there de-escalation of care discussed even if they declined (Discuss DNR or withdrawal of care, Hospice)? DNR status @ -[No] What co-morbidities impacted this encounter? (DM, HTN, Smoking, COPD, CAD, Cancer, CVA, ARF, Chemo, Hep., AIDS, mental health diagnosis, sleep apnea, morbid obesity)? @ -[None] Was patient admitted / discharged? Hospital course, mention meds given and route, prescriptions, significant lab abnormalities, going to OR and other pertinent info. @ -[This patient is a 22-year-old woman presenting with lower abdominal cramping in early . The patient did have ultrasound which shows early intrauterine but no evidence of heterotopic or other abnormality. The patient's urinalysis does reveal some leukocyte esterase and some bacteria therefore will treat. Discussed appropriate further care and follow-up as well as return parameters Undiagnosed new problem with uncertain prognosis? @ -[No] Drug Therapy requiring intensive monitoring for toxicity (Heparin, Nitro, Insulin, Cardizem)? @ -[No] Were any procedures done? @ -[No] Diagnosis/symptom? @ -[Abdominal pain in early Asymptomatic bacteriuria Acute, or Chronic, or Acute on Chronic? @ -[Acute Uncomplicated (without systemic symptoms) or Complicated (systemic symptoms)? @ -[Uncomplicated Side effects of treatment? @ -[No] Exacerbation, Progression, or Severe Exacerbation? @ -[No] Poses a threat to life or bodily function? How? (Chest pain, [place], [place], pneumonia, PE, COPD, DKA, ARF, appy, cholecystitis, CVA, Diverticulitis, Homicidal, Suicidal, threat to staff... and all critical care pts) @ -[No] (Tomy Louis) - Lab Data Lab Results 09/05/23 09/05/23 09/05/23 Range/Units 23:13 23:13 23:13 WBC 9.2 (3.8-10.6) k/uL RBC 4.59 (3.80-5.40) m/uL Hgb 12.4 (11.4-16.0) gm/dL Hct 37.9 (34.0-46.0) % MCV 82.5 (80.0-100.0) fL MCH 27.0 (25.0-35.0) pg MCHC 32.7 (31.0-37.0) g/dL RDW 14.0 (11.5-15.5) % Plt Count 335 (150-450) k/uL MPV 7.2 Neutrophils % 65 % Lymphocytes % 24 % Monocytes % 6 % Eosinophils % 2 % Basophils % 1 % Neutrophils # 5.9 (1.3-7.7) k/uL Lymphocytes # 2.2 (1.0-4.8) k/uL Monocytes # 0.6 (0-1.0) k/uL Eosinophils # 0.2 (0-0.7) k/uL Basophils # 0.1 (0-0.2) k/uL Sodium 137 (137-145) mmol/L Potassium 3.8 (3.5-5.1) mmol/L Chloride 107 (98-107) mmol/L Carbon Dioxide 20 L (22-30) mmol/L Anion Gap 10 mmol/L BUN 12 (7-17) mg/dL Creatinine 0.69 (0.52-1.04) mg/dL Est GFR (CKD-EPI)AfAm >90 (>60 ml/min/1.73 sqM) Est GFR (CKD-EPI)NonAf >90 (>60 ml/min/1.73 sqM) Glucose 82 (74-99) mg/dL Calcium 9.3 (8.4-10.2) mg/dL Total Bilirubin 0.9 (0.2-1.3) mg/dL AST 21 (14-36) U/L ALT 11 (4-34) U/L Alkaline Phosphatase 59 (38-126) U/L Total Protein 7.1 (6.3-8.2) g/dL Albumin 4.3 (3.5-5.0) g/dL HCG, Quant 36393.7 mIU/mL Urine Color Colorless Urine Appearance Turbid H (Clear) Urine pH 7.5 (5.0-8.0) Ur Specific [place] 1.023 (1.001-1.035) Urine Protein Negative (Negative) Urine Glucose (UA) Negative (Negative) Urine Ketones Negative (Negative) Urine Blood Negative (Negative) Urine Nitrite Negative (Negative) Urine Bilirubin Negative (Negative) Urine Urobilinogen <2.0 (<2.0) mg/dL Ur Leukocyte Esterase Moderate H (Negative) Urine RBC 2 (0-5) /hpf Urine WBC 3 (0-5) /hpf Ur Squamous Epith Cells 8 H (0-4) /hpf Amorphous Sediment Rare H (None) /hpf Urine Bacteria Rare H (None) /hpf Disposition <Wandy Lange - Last Filed: 09/05/23 21:37> Is patient prescribed a controlled substance at d/c from ED?: No <Tomy Louis - Last Filed: 09/27/23 06:44> Clinical Impression: Abdominal pain Disposition: HOME SELF-CARE Condition: Good Instructions (If sedation given, give patient instructions): Abdominal Pain in (ED) Prescriptions: Amoxicillin 500 mg PO Q8H #21 capsule Referrals: Jude Lopez MD [Primary Care Provider] - 1-2 days
--- NOTE | 2023-09-05 23:08 | US ---
EXAM: US First Trimester , Transabdominal CLINICAL HISTORY: ITS.REASON US Reason: Abdominal cramping, + , LMP 06/25/23 TECHNIQUE: Real-time transabdominal obstetrical ultrasound of the maternal pelvis and a first trimester with image documentation. COMPARISON: No previous studies. FINDINGS: Gestation: Single viable intrauterine gestation is noted corresponding to 6 weeks 2 days. Yolk sac is unremarkable. heart rate is 122 bpm. Placenta/amniotic fluid: Cannot be adequately evaluated due to the early gestational age. Uterus/cervix: The uterus measures 8.7 x 7.4 x 6.0 cm. No myometrial mass. Ovaries: Right ovary measures 2.7 x 1.5 x 1.2 cm. Left ovary measures 2.9 x 1 point and 1.7 cm. No mass. Free fluid: Minimal simple free fluid within the posterior cul-de-sac. IMPRESSION: 1. Single viable intrauterine gestation corresponding to 6 weeks 2 days. 2. heart rate is 122 bpm.
[2023-09-05 23:37] LABS: Basophils # (A) 0.1 k/uL (0-0.2); Basophils % (A) 1 %; Eosinophils # (A) 0.2 k/uL (0-0.7); Eosinophils % (A) 2 %; HCT 37.9 % (34.0-46.0); HGB 12.4 gm/dL (11.4-16.0); Lymphocytes # (A) 2.2 k/uL (1.0-4.8); Lymphocytes % (A) 24 %; MCHC 32.7 g/dL (31.0-37.0); MCV 82.5 fL (80.0-100.0); Mean Platelet Volume 7.2; Monocytes # (A) 0.6 k/uL (0-1.0); Monocytes % (A) 6 %; Neutrophils # (A) 5.9 k/uL (1.3-7.7); Neutrophils % (A) 65 %; Platelet Count 335 k/uL (150-450); RBC 4.59 m/uL (3.80-5.40); WBC 9.2 k/uL (3.8-10.6)
[2023-09-05 23:49] LABS: Amorphous Sediment,Urine Rare /hpf; Appearance,Urine Turbid (Clear); Bacteria,Urine Rare /hpf; Bilirubin,Urine Negative (Negative); Blood,Urine Negative (Negative); Color,Urine Colorless; Glucose,Urine (UA) Negative (Negative); Ketones,Urine Negative (Negative); Leukocyte Esterase,Urine Moderate (Negative); Nitrite,Urine Negative (Negative); PH, Urine 7.5 (5.0-8.0); Protein,Urine Negative (Negative); RBC,Urine 2 /hpf (0-5); Specific Gravity,Urine 1.023 (1.001-1.035); Squamous Epithelial Cell,Urine 8 /hpf (0-4); Urobilinogen,Urine <2.0 mg/dL (<2.0); WBC,Urine 3 /hpf (0-5)
[2023-09-06 00:07] LABS: ALT 11 U/L (4-34); AST 21 U/L (14-36); African American GFR (CKD) >90 (>60 ml/min/1.73 sqM); Albumin 4.3 g/dL (3.5-5.0); Alkaline Phosphatase 59 U/L (38-126); Anion Gap 10 mmol/L; Blood Urea Nitrogen 12 mg/dL (7-17); Calcium 9.3 mg/dL (8.4-10.2); Carbon Dioxide 20 mmol/L (22-30); Chloride 107 mmol/L (98-107); Glucose 82 mg/dL (74-99); Non-African American GFR(CKD) >90 (>60 ml/min/1.73 sqM); Potassium 3.8 mmol/L (3.5-5.1); Sodium 137 mmol/L (137-145); Total Bilirubin 0.9 mg/dL (0.2-1.3); Total Protein 7.1 g/dL (6.3-8.2)
[2023-09-06 01:00] LABS: HCG,Quantitative Serum 62099.7 mIU/mL
[2023-09-06 01:32] VITALS: BP 118/64; PULSE 72; TEMP 98.8
== END 2023-09-06 01:25 | disposition home or self-care (01) ==
LOC: EC 21:15
DX: O26.891 Other specified pregnancy related conditions, first trimester (principal); R10.32 Left lower quadrant pain; O99.331 Smoking (tobacco) complicating pregnancy, first trimester; F17.200 Nicotine dependence, unspecified, uncomplicated; Z88.2 Allergy status to sulfonamides; Z88.6 Allergy status to analgesic agent; Z3A.01 Less than 8 weeks gestation of pregnancy
CPT/HCPCS: 36415; 76801; 80053; 81001; 84702; 85025; 99284

== ENCOUNTER 2023-10-21 19:35 | Emergency (ER) | payer OTHER ==
--- NOTE | 2023-10-21 20:30 | ED ---
General Adult HPI - General Source: patient Mode of arrival: ambulatory Limitations: no limitations <Michael Baker - Last Filed: 10/21/23 20:29> <Sidra Shaikh - Last Filed: 10/25/23 10:42> - General Chief complaint: Vaginal Bleeding Stated complaint: 13wks prg, vaginal bleeding Time Seen by Provider: 10/21/23 20:29 - History of Present Illness Initial comments: 22-year-old female currently about 13 weeks presenting with chief complaint of vaginal bleeding. She is a G2, . She has had brown vaginal discharge for few days, today she had a bright red blood with a blood clot. She is having no cramping. (Michael Baker) 22 year old female presents to the emergency department at 13 weeks gestation for evaluation of vaginal bleeding. Patient reports that earlier today she had vaginal bleeding with a clot. She states that since then she has had no further bleeding. She denies abdominal pain or cramping. She follows with Dr. Quiñones and has an upcoming appointment next week. (Sidra Shaikh) - Related Data Home Medications Medication Instructions Recorded Confirmed Ferrous Sulfate [Iron (65 MG 325 mg PO DAILY 01/19/19 01/27/19 Elemental)] Naproxen 500 mg PO BID 01/19/19 01/27/19 Varenicline [Chantix Continuing 1 mg PO BID 01/19/19 01/27/19 Pack] Previous Rx's Medication Instructions Recorded Nicotine Gum (Polacrilex) 2 mg BUCCAL Q4HR PRN gum 01/27/19 [Nicorette] busPIRone HCl [Buspar] 15 mg PO BID #60 tab 01/27/19 lamoTRIgine [LaMICtal] 100 mg PO DAILY #30 tab 01/27/19 Doxycycline Monohydrate [Monodox] 100 mg PO Q12HR #14 cap 06/03/20 Amoxicillin 500 mg PO Q8H #21 capsule 09/06/23 Allergies Allergy/AdvReac Type Severity Reaction Status Date / Time ibuprofen [From Motrin] Allergy Unknown Verified 10/21/23 19:47 Sulfa (Sulfonamide Allergy Unknown Verified 10/21/23 19:47 Antibiotics) Review of Systems ROS Other: All systems not noted in ROS Statement are negative. <Michael Baker - Last Filed: 10/21/23 20:29> ROS Other: All systems not noted in ROS Statement are negative. <Sidra Shaikh - Last Filed: 10/25/23 10:42> ROS Statement: Those systems with pertinent positive or pertinent negative responses have been documented in the HPI. Past Medical History Past Medical History: Asthma, Thyroid Disorder Additional Past Medical History / Comment(s): low iron, enlarged thyroid, severe headaches. History of Any Multi-Drug Resistant Organisms: None Reported Past Surgical History: No Surgical Hx Reported Additional Past Surgical History / Comment(s): Pt states she has never had surgery. Past Anesthesia/Blood Transfusion Reactions: No Reported Reaction Past Psychological History: ADD/ADHD, Anxiety Smoking Status: Current some day smoker, Vaper Past Alcohol Use History: None Reported Past Drug Use History: Marijuana - Past Family History Father History Unknown: Yes Additional Family Medical History / Comment(s): Pt's father is not in her life Mother Family Medical History: COPD Additional Family Medical History / Comment(s): Mother wears oxygen at night. <Michael Baker - Last Filed: 10/21/23 20:29> General Exam Limitations: no limitations <Michael Baker - Last Filed: 10/21/23 20:29> Limitations: no limitations General appearance: alert, in no apparent distress Head exam: Present: atraumatic, normocephalic, normal inspection Eye exam: Present: normal appearance, PERRL, EOMI. Absent: scleral icterus, conjunctival injection, periorbital swelling Respiratory exam: Present: normal lung sounds bilaterally. Absent: respiratory distress, wheezes, rales, rhonchi, stridor Cardiovascular Exam: Present: regular rate, normal rhythm, normal heart sounds. Absent: systolic murmur, diastolic murmur, rubs, gallop, clicks GI/Abdominal exam: Present: soft, normal bowel sounds. Absent: distended, tenderness, guarding, rebound, rigid Neurological exam: Present: alert, oriented X3 Psychiatric exam: Present: normal affect, normal mood Skin exam: Present: warm, dry, intact, normal color. Absent: rash <Sidra Shaikh - Last Filed: 10/25/23 10:42> - General Exam Comments Initial Comments: Visual Physical Exam Vital signs reviewed General: Well-appearing, nontoxic, no acute distress. Head: Normocephalic, atraumatic Eyes: PERRLA, EOMI ENT: Airway patent Chest: Nonlabored breathing Skin: No visual rash, normal skin tone Neuro: Alert and oriented 3 Musculoskeletal: No gross abnormalities (Michael Baker) Course Vital Signs 10/21/23 10/22/23 19:47 00:13 Temperature 98.3 F 98.0 F Pulse Rate 83 69 Respiratory 17 16 Rate Blood Pressure 109/48 103/66 O2 Sat by Pulse 98 98 Oximetry Medical Decision Making <Michael Baker - Last Filed: 10/21/23 20:29> - Lab Data Result diagrams: 10/21/23 20:31 10/21/23 20:31 <Sidra Shaikh - Last Filed: 10/25/23 10:42> - Medical Decision Making I performed the quick note portion of this visit, electronically signed Michael Baker PA-C (Michael Baker) Was pt. sent in by a medical professional or institution ([facility], [facility], urgent care, hospital, or assisted...) When possible be specific @ -No Did you speak to anyone other than the patient for history (EMS, parent, family, police, friend...)? What history was obtained from this source @ -No Did you review nursing and triage notes (agree or disagree)? Why? @ -I reviewed and agree with nursing and triage notes Were old charts reviewed (outside hosp., previous admission, EMS record, old EKG, old radiological studies, urgent care reports/EKG's, assisted records)? Report findings @ -No old charts were reviewed Differential Diagnosis (chest pain, altered mental status, abdominal pain women, abdominal pain men, vaginal bleeding, weakness, fever, dyspnea, syncope, headache, dizziness, GI bleed, back pain, seizure, CVA, palpatations, mental health, musculoskeletal)? @ -Differential Vaginal Bleeding: Spontaneous , threatened , molar , ectopic , bloody show, incompetent cervix, abruptioplacenta, placenta previa, uterine rupture, dysfunctional uterine bleeding, hemorrhage, uterine fibroids, this is not meant to be an all-inclusive list. EKG interpreted by me (3pts min.). @ -None X-rays interpreted by me (1pt min.). @ -None done CT interpreted by me (1pt min.). @ -None done U/S interpreted by me (1pt. min.). @ - ultrasound shows a single live intrauterine measuring 12 weeks 6 days with a heart rate of 143 What testing was considered but not performed or refused? (CT, X-rays, U/S, labs)? Why? @ -None What meds were considered but not given or refused? Why? @ -None Did you discuss the management of the patient with other professionals (professionals i.e. , PA, [employer] [facility], lab, RT, psych nurse, social welfare research worker, modeling manager, teacher, correction officer supervisor, therapeutic case manager)? Give summary @ -No Was smoking cessation discussed for >3mins.? @ -No Was critical care preformed (if so, how long)? @ -No Were there social determinants of health that impacted care today? How? (Homelessness, low income, unemployed, alcoholism, drug addiction, transportation, low edu. Level, literacy, decrease access to med. care, custodial, rehab)? @ -No Was there de-escalation of care discussed even if they declined (Discuss DNR or withdrawal of care, Hospice)? DNR status @ -No What co-morbidities impacted this encounter? (DM, HTN, Smoking, COPD, CAD, Cancer, CVA, ARF, Chemo, Hep., AIDS, mental health diagnosis, sleep apnea, morbid obesity)? @ -None Was patient admitted / discharged? Hospital course, mention meds given and route, prescriptions, significant lab abnormalities, going to OR and other pertinent info. @ -Discharge. Patient presented with to the emergency department for evaluation of vaginal bleeding in . Laboratory studies obtained. Hemoglobin stable at12.2; hCG 850563, UA shows no evidence of infectious process. Ultrasound obtained which shows a single live intrauterine measuring 12 weeks 6 days. O+ blood therefore not requiring rhogam. She reports that at this time the bleeding has subsided. She is not having any pain. She was advised to follow up with her [employer]ER. She is understanding and agreeable with this plan. Patient stable at time of discharge. Case discussed with Dr. Phillips Undiagnosed new problem with uncertain prognosis? @ -No Drug Therapy requiring intensive monitoring for toxicity (Heparin, Nitro, Insulin, Cardizem)? @ -No Were any procedures done? @ -No Diagnosis/symptom? @ -vaginal bleeding in Acute, or Chronic, or Acute on Chronic? @ -acute Uncomplicated (without systemic symptoms) or Complicated (systemic symptoms)? @ -uncomplicated Side effects of treatment? @ -No Exacerbation, Progression, or Severe Exacerbation? @ -No Poses a threat to life or bodily function? How? (Chest pain, [place], [place], pneumonia, PE, COPD, DKA, ARF, appy, cholecystitis, CVA, Diverticulitis, Homicidal, Suicidal, threat to staff... and all critical care pts) @ -No (Sidra Shaikh) - Lab Data Lab Results 10/21/23 10/21/23 10/21/23 Range/Units 20:31 20:31 20:31 WBC 9.5 (3.8-10.6) k/uL RBC 4.43 (3.80-5.40) m/uL Hgb 12.2 (11.4-16.0) gm/dL Hct 37.3 (34.0-46.0) % MCV 84.2 (80.0-100.0) fL MCH 27.6 (25.0-35.0) pg MCHC 32.8 (31.0-37.0) g/dL RDW 14.2 (11.5-15.5) % Plt Count 350 (150-450) k/uL MPV 6.9 Neutrophils % 77 % Lymphocytes % 15 % Monocytes % 5 % Eosinophils % 2 % Basophils % 0 % Neutrophils # 7.3 (1.3-7.7) k/uL Lymphocytes # 1.4 (1.0-4.8) k/uL Monocytes # 0.5 (0-1.0) k/uL Eosinophils # 0.2 (0-0.7) k/uL Basophils # 0.0 (0-0.2) k/uL Sodium 135 L (137-145) mmol/L Potassium 3.4 L (3.5-5.1) mmol/L Chloride 107 (98-107) mmol/L Carbon Dioxide 23 (22-30) mmol/L Anion Gap 5 mmol/L BUN 8 (7-17) mg/dL Creatinine 0.72 (0.52-1.04) mg/dL Est GFR (CKD-EPI)AfAm >90 (>60 ml/min/1.73 sqM) Est GFR (CKD-EPI)NonAf >90 (>60 ml/min/1.73 sqM) Glucose 84 (74-99) mg/dL Calcium 9.5 (8.4-10.2) mg/dL Total Bilirubin 1.1 (0.2-1.3) mg/dL AST 35 (14-36) U/L ALT 21 (4-34) U/L Alkaline Phosphatase 52 (38-126) U/L Total Protein 6.9 (6.3-8.2) g/dL Albumin 4.1 (3.5-5.0) g/dL HCG, Quant 868281.0 mIU/mL Urine Color Urine Appearance (Clear) Urine pH (5.0-8.0) Ur Specific [place] (1.001-1.035) Urine Protein (Negative) Urine Glucose (UA) (Negative) Urine Ketones (Negative) Urine Blood (Negative) Urine Nitrite (Negative) Urine Bilirubin (Negative) Urine Urobilinogen (<2.0) mg/dL Ur Leukocyte Esterase (Negative) Urine RBC (0-5) /hpf Urine WBC (0-5) /hpf Ur Squamous Epith Cells (0-4) /hpf Calcium Oxalate Crystal (None) /hpf Amorphous Sediment (None) /hpf Hyaline Casts (0-2) /lpf Urine Mucus (None) /hpf Blood Type O Positive Blood Type Confirm Blood Type Recheck No Previous Record Bld Type Recheck Status CABO Indicated 10/21/23 10/21/23 Range/Units 21:14 22:40 WBC (3.8-10.6) k/uL RBC (3.80-5.40) m/uL Hgb (11.4-16.0) gm/dL Hct (34.0-46.0) % MCV (80.0-100.0) fL MCH (25.0-35.0) pg MCHC (31.0-37.0) g/dL RDW (11.5-15.5) % Plt Count (150-450) k/uL MPV Neutrophils % % Lymphocytes % % Monocytes % % Eosinophils % % Basophils % % Neutrophils # (1.3-7.7) k/uL Lymphocytes # (1.0-4.8) k/uL Monocytes # (0-1.0) k/uL Eosinophils # (0-0.7) k/uL Basophils # (0-0.2) k/uL Sodium (137-145) mmol/L Potassium (3.5-5.1) mmol/L Chloride (98-107) mmol/L Carbon Dioxide (22-30) mmol/L Anion Gap mmol/L BUN (7-17) mg/dL Creatinine (0.52-1.04) mg/dL Est GFR (CKD-EPI)AfAm (>60 ml/min/1.73 sqM) Est GFR (CKD-EPI)NonAf (>60 ml/min/1.73 sqM) Glucose (74-99) mg/dL Calcium (8.4-10.2) mg/dL Total Bilirubin (0.2-1.3) mg/dL AST (14-36) U/L ALT (4-34) U/L Alkaline Phosphatase (38-126) U/L Total Protein (6.3-8.2) g/dL Albumin (3.5-5.0) g/dL HCG, Quant mIU/mL Urine Color Yellow Urine Appearance Cloudy H (Clear) Urine pH 7.0 (5.0-8.0) Ur Specific [place] 1.026 (1.001-1.035) Urine Protein Trace H (Negative) Urine Glucose (UA) Negative (Negative) Urine Ketones Negative (Negative) Urine Blood Moderate H (Negative) Urine Nitrite Negative (Negative) Urine Bilirubin Negative (Negative) Urine Urobilinogen 3.0 (<2.0) mg/dL Ur Leukocyte Esterase Negative (Negative) Urine RBC 1 (0-5) /hpf Urine WBC 4 (0-5) /hpf Ur Squamous Epith Cells 1 (0-4) /hpf Calcium Oxalate Crystal Few H (None) /hpf Amorphous Sediment Occasional H (None) /hpf Hyaline Casts 3 H (0-2) /lpf Urine Mucus Occasional H (None) /hpf Blood Type Blood Type Confirm O Positive Blood Type Recheck Bld Type Recheck Status Disposition <Michael Baker - Last Filed: 10/21/23 20:29> Is patient prescribed a controlled substance at d/c from ED?: No <Sidra Shaikh - Last Filed: 10/25/23 10:42> Clinical Impression: Vaginal bleeding during , Threatened miscarriage Disposition: HOME SELF-CARE Condition: Stable Instructions (If sedation given, give patient instructions): Threatened Miscarriage (ED) Additional Instructions: Please follow up with Dr. Quiñones as scheduled. Return to the emergency department for new or worsening symptoms. Referrals: Rosemarie Estrada MD [Primary Care Provider] - 1-2 days Forms: Work/School Release
[2023-10-21 20:48] LABS: Basophils % (A) 0 %; Eosinophils # (A) 0.2 k/uL (0-0.7); Eosinophils % (A) 2 %; HCT 37.3 % (34.0-46.0); HGB 12.2 gm/dL (11.4-16.0); Lymphocytes # (A) 1.4 k/uL (1.0-4.8); Lymphocytes % (A) 15 %; MCH 27.6 pg (25.0-35.0); MCHC 32.8 g/dL (31.0-37.0); MCV 84.2 fL (80.0-100.0); Mean Platelet Volume 6.9; Monocytes # (A) 0.5 k/uL (0-1.0); Monocytes % (A) 5 %; Neutrophils # (A) 7.3 k/uL (1.3-7.7); Neutrophils % (A) 77 %; Platelet Count 350 k/uL (150-450); RBC 4.43 m/uL (3.80-5.40); RDW 14.2 % (11.5-15.5); WBC 9.5 k/uL (3.8-10.6)
[2023-10-21 21:04] LABS: ALT 21 U/L (4-34); AST 35 U/L (14-36); African American GFR (CKD) >90 (>60 ml/min/1.73 sqM); Albumin 4.1 g/dL (3.5-5.0); Alkaline Phosphatase 52 U/L (38-126); Anion Gap 5 mmol/L; Blood Urea Nitrogen 8 mg/dL (7-17); Calcium 9.5 mg/dL (8.4-10.2); Carbon Dioxide 23 mmol/L (22-30); Chloride 107 mmol/L (98-107); Glucose 84 mg/dL (74-99); Non-African American GFR(CKD) >90 (>60 ml/min/1.73 sqM); Potassium 3.4 mmol/L (3.5-5.1); Sodium 135 mmol/L (137-145); Total Bilirubin 1.1 mg/dL (0.2-1.3); Total Protein 6.9 g/dL (6.3-8.2)
--- NOTE | 2023-10-21 21:19 | US ---
EXAMINATION TYPE: Transabdominal DATE OF EXAM: 10/21/2023 8:58 PM COMPARISON: 09/05/2023 CLINICAL INDICATION: Female, 22 years old with history of vaginal bleeding; w/o cramping or pain. EXAM PERFORMED: Transabdominal (TA) EXAM MEASUREMENTS: GESTATIONAL AGE / DATING Physician Established: (13weeks/0 days) EDC: 04/27/2024 Dates by LMP: (13weeks/0 days) EDC: 04/27/2024 Dates by First Scan: (12weeks/6 days) EDC: 04/28/2024 Dates by Current Scan for: (12weeks/6days) EDC: 04/28/2024 MATERNAL ANATOMY Uterus: 12.1 x 8.9 x 10.0cm. Right Ovary: Unable to visualize Left Ovary: 2.6 x 1.9 x 2.4cm. Appears WNL as best seen Post CDS / Adnexa: WNL as best seen Presence of free fluid: No Presence of corpus luteal cyst: Not seen Presence of subchorionic bleed:No GESTATION / SURVEY CRL: 6.4cm, 12 weeks 6 days Yolk Sac (normal less than 6mm): Not visualized Heart Rate: 143 bpm Rhythm: Normal IUP: Viable IUP Placenta: There is a 1.8 x 0.9 x 1.3cm anechoic area that appears to be located within the placenta. Date of LMP: 07/23/2023 Beta HcG (if available): Not available at this time Suspect tiny placental romero adjacent to the placenta. Short-term ultrasound follow-up is advised to alana matias. IMPRESSION: 1. Single live intrauterine gestation is confirmed.
[2023-10-21 23:31] LABS: Amorphous Sediment,Urine Occasional /hpf; Appearance,Urine Cloudy (Clear); Bilirubin,Urine Negative (Negative); Blood,Urine Moderate (Negative); Calcium Oxalate Crystals,Urine Few /hpf; Color,Urine Yellow; Glucose,Urine (UA) Negative (Negative); Hyaline Casts,Urine 3 /lpf (0-2); Ketones,Urine Negative (Negative); Leukocyte Esterase,Urine Negative (Negative); Mucus,Urine Occasional /hpf; Nitrite,Urine Negative (Negative); Protein,Urine Trace (Negative); RBC,Urine 1 /hpf (0-5); Specific Gravity,Urine 1.026 (1.001-1.035); Squamous Epithelial Cell,Urine 1 /hpf (0-4); WBC,Urine 4 /hpf (0-5)
[2023-10-22 00:14] VITALS: BP 103/66; PULSE 69; RESP 16; TEMP 98
== END 2023-10-22 00:15 | disposition home or self-care (01) ==
LOC: EC 19:35
DX: O20.0 Threatened abortion (principal); O99.331 Smoking (tobacco) complicating pregnancy, first trimester; F17.290 Nicotine dependence, other tobacco product, uncomplicated; O99.321 Drug use complicating pregnancy, first trimester; Z88.2 Allergy status to sulfonamides; F12.90 Cannabis use, unspecified, uncomplicated; Z88.1 Allergy status to other antibiotic agents; Z3A.13 13 weeks gestation of pregnancy
CPT/HCPCS: 36415; 76801; 80053; 81001; 84702; 85025; 86900; 86901; 99284

== ENCOUNTER 2023-11-04 11:08 | Emergency (ER) | payer OTHER ==
[2023-11-04 11:18] VITALS: RESP 16
--- NOTE | 2023-11-04 12:02 | ED ---
Female Urogenital HPI - General Chief complaint: Vaginal Bleeding Stated complaint: 13 wks preg/bleeding Time Seen by Provider: 11/04/23 11:59 Source: patient, RN notes reviewed Mode of arrival: ambulatory Limitations: no limitations - History of Present Illness Initial comments: 23-year-old female at approximately 14 weeks gestation presenting with vaginal bleeding x 2 days. States she is having bright red blood on the toilet paper when she wipes as well as quarter size clots. She states it is a small amount of bleeding, states she is not going through more than 1 pad for the day. She follows with Dr. Quiñones. She was here in the ER on October 20 for similar symptoms when she was told that the fetus looked normal however she had a blood clot next to the placenta. Denies abdominal pain or cramping, lightheadedness, or syncope. - Related Data Home Medications Medication Instructions Recorded Confirmed Ferrous Sulfate [Iron (65 MG 325 mg PO DAILY 01/19/19 01/27/19 Elemental)] Naproxen 500 mg PO BID 01/19/19 01/27/19 Varenicline [Chantix Continuing 1 mg PO BID 01/19/19 01/27/19 Pack] Previous Rx's Medication Instructions Recorded Nicotine Gum (Polacrilex) 2 mg BUCCAL Q4HR PRN gum 01/27/19 [Nicorette] busPIRone HCl [Buspar] 15 mg PO BID #60 tab 01/27/19 lamoTRIgine [LaMICtal] 100 mg PO DAILY #30 tab 01/27/19 Doxycycline Monohydrate [Monodox] 100 mg PO Q12HR #14 cap 06/03/20 Amoxicillin 500 mg PO Q8H #21 capsule 09/06/23 Allergies Allergy/AdvReac Type Severity Reaction Status Date / Time ibuprofen [From Motrin] Allergy Unknown Verified 11/04/23 11:15 Sulfa (Sulfonamide Allergy Unknown Verified 11/04/23 11:15 Antibiotics) Review of Systems ROS Statement: Those systems with pertinent positive or pertinent negative responses have been documented in the HPI. ROS Other: All systems not noted in ROS Statement are negative. Past Medical History Past Medical History: Asthma, Thyroid Disorder Additional Past Medical History / Comment(s): low iron, enlarged thyroid, severe headaches. History of Any Multi-Drug Resistant Organisms: None Reported Past Surgical History: No Surgical Hx Reported Additional Past Surgical History / Comment(s): Pt states she has never had surgery. Past Anesthesia/Blood Transfusion Reactions: No Reported Reaction Past Psychological History: ADD/ADHD, Anxiety Smoking Status: Current some day smoker, Vaper Past Alcohol Use History: None Reported Past Drug Use History: Marijuana - Past Family History Father History Unknown: Yes Additional Family Medical History / Comment(s): Pt's father is not in her life Mother Family Medical History: COPD Additional Family Medical History / Comment(s): Mother wears oxygen at night. General Exam Limitations: no limitations General appearance: alert, in no apparent distress Head exam: Present: atraumatic, normocephalic, normal inspection Eye exam: Present: normal appearance, PERRL, EOMI. Absent: scleral icterus, conjunctival injection, periorbital swelling ENT exam: Present: normal exam, mucous membranes moist Neck exam: Present: normal inspection. Absent: tenderness, meningismus, lymphadenopathy Respiratory exam: Present: normal lung sounds bilaterally. Absent: respiratory distress, wheezes, rales, rhonchi, stridor Cardiovascular Exam: Present: regular rate, normal rhythm, normal heart sounds. Absent: systolic murmur, diastolic murmur, rubs, gallop, clicks GI/Abdominal exam: Present: soft, normal bowel sounds. Absent: distended, tenderness, guarding, rebound, rigid Extremities exam: Present: normal inspection Neurological exam: Present: alert, oriented X3 Psychiatric exam: Present: normal affect, normal mood Skin exam: Present: warm, dry, intact, normal color. Absent: rash Course Vital Signs 11/04/23 11/04/23 11:15 14:42 Temperature 98.2 F 98.1 F Pulse Rate 70 72 Respiratory 16 16 Rate Blood Pressure 109/67 112/86 O2 Sat by Pulse 98 98 Oximetry Medical Decision Making - Medical Decision Making Was pt. sent in by a medical professional or institution (, PA, ASSOCIATE MEDIA DIRECTOR, urgent care, hospital, or assisted...) When possible be specific @ -No Did you speak to anyone other than the patient for history (EMS, parent, family, police, friend...)? What history was obtained from this source @ -No Did you review nursing and triage notes (agree or disagree)? Why? @ -I reviewed and agree with nursing and triage notes Were old charts reviewed (outside hosp., previous admission, EMS record, old EKG, old radiological studies, urgent care reports/EKG's, assisted records)? Report findings @ -Previous ER visit from 10/20 reviewed. Blood type is O+ Differential Diagnosis (chest pain, altered mental status, abdominal pain women, abdominal pain men, vaginal bleeding, weakness, fever, dyspnea, syncope, headache, dizziness, GI bleed, back pain, seizure, CVA, palpatations, mental health, musculoskeletal)? @ -Differential Vaginal Bleeding: Spontaneous , threatened , molar , ectopic , bloody show, incompetent cervix, abruptioplacenta, placenta previa, uterine rupture, dysfunctional uterine bleeding, hemorrhage, uterine fibroids, this is not meant to be an all-inclusive list. EKG interpreted by me (3pts min.). @ -None X-rays interpreted by me (1pt min.). @ -None done CT interpreted by me (1pt min.). @ -None done U/S interpreted by me (1pt. min.). @ -Ultrasound reveals single live intrauterine gestation at approximately age 15 weeks 1 day. At least 2 subchorionic hemorrhages present What testing was considered but not performed or refused? (CT, X-rays, U/S, labs)? Why? @ -Blood typing not performed due to ER visit 2 weeks ago reviewed blood type O positive What meds were considered but not given or refused? Why? @ -RhoGAM not indicated at this time due to O+ blood type Did you discuss the management of the patient with other professionals (professionals i.e. , PA, ASSOCIATE MEDIA DIRECTOR, lab, RT, psych nurse, social secretary, locksmith, teacher, radiation safety officer, egg caser)? Give summary @ -No Was smoking cessation discussed for >3mins.? @ -No Was critical care preformed (if so, how long)? @ -No Were there social determinants of health that impacted care today? How? (Homelessness, low income, unemployed, alcoholism, drug addiction, transportation, low edu. Level, literacy, decrease access to med. care, custodial, rehab)? @ -No Was there de-escalation of care discussed even if they declined (Discuss DNR or withdrawal of care, Hospice)? DNR status @ -No What co-morbidities impacted this encounter? (DM, HTN, Smoking, COPD, CAD, Cancer, CVA, ARF, Chemo, Hep., AIDS, mental health diagnosis, sleep apnea, morbid obesity)? @ -None Was patient admitted / discharged? Hospital course, mention meds given and route, prescriptions, significant lab abnormalities, going to OR and other pertinent info. @ -Patient was discharged. Patient was seen and evaluated for vaginal bleeding at approximately 15 weeks gestation. Denies abdominal pain. Lab work including CBC, CMP, and coags are unremarkable. hCG is 70,776 which is decreased from 10/20 value of 113,209. Decrease in beta hCG likely insignificant due to gestat ional age. Ultrasound reveals single live intrauterine gestation at age 15 weeks 1 day. There is at least 2 subchorionic hemorrhages present. Urine is remarkable for moderate blood, negative for bacteria. Discussed diagnosis of threatened with patient. Strict return parameters given. Advised to follow-up with OB in 1 to 2 days for reevaluation. Patient is agreeable to plan. Case discussed with my ED attending Dr. Miller. Patient discharged in stable condition. Undiagnosed new problem with uncertain prognosis? @ -No Drug Therapy requiring intensive monitoring for toxicity (Heparin, Nitro, Insulin, Cardizem)? @ -No Were any procedures done? @ -No Diagnosis/symptom? @ -Threatened Acute, or Chronic, or Acute on Chronic? @ -Acute Uncomplicated (without systemic symptoms) or Complicated (systemic symptoms)? @ -Uncomplicated Side effects of treatment? @ -No Exacerbation, Progression, or Severe Exacerbation? @ -No Poses a threat to life or bodily function? How? (Chest pain, USA, HI, pneumonia, PE, COPD, DKA, ARF, appy, cholecystitis, CVA, Diverticulitis, Homicidal, S uicidal, threat to staff... and all critical care pts) @ -Unlikely at this time - Lab Data Result diagrams: 11/04/23 12:00 11/04/23 12:00 Lab Results 11/04/23 11/04/23 11/04/23 Range/Units 12:00 12:00 12:00 WBC 8.6 (3.8-10.6) k/uL RBC 4.41 (3.80-5.40) m/uL Hgb 12.1 (11.4-16.0) gm/dL Hct 37.1 (34.0-46.0) % MCV 84.0 (80.0-100.0) fL MCH 27.4 (25.0-35.0) pg MCHC 32.6 (31.0-37.0) g/dL RDW 14.1 (11.5-15.5) % Plt Count 322 (150-450) k/uL MPV 7.1 Neutrophils % 79 % Lymphocytes % 14 % Monocytes % 4 % Eosinophils % 2 % Basophils % 0 % Neutrophils # 6.8 (1.3-7.7) k/uL Lymphocytes # 1.2 (1.0-4.8) k/uL Monocytes # 0.4 (0-1.0) k/uL Eosinophils # 0.1 (0-0.7) k/uL Basophils # 0.0 (0-0.2) k/uL PT 10.1 (10.0-12.5) sec INR 0.9 (<1.2) APTT 24.7 (22.0-30.0) sec Sodium 132 L (137-145) mmol/L Potassium 4.1 (3.5-5.1) mmol/L Chloride 108 H (98-107) mmol/L Carbon Dioxide 18 L (22-30) mmol/L Anion Gap 6 mmol/L BUN 11 (7-17) mg/dL Creatinine 0.50 L (0.52-1.04) mg/dL Est GFR (CKD-EPI)AfAm >90 (>60 ml/min/1.73 sqM) Est GFR (CKD-EPI)NonAf >90 (>60 ml/min/1.73 sqM) Glucose 87 (74-99) mg/dL Calcium 9.0 (8.4-10.2) mg/dL Total Bilirubin 0.7 (0.2-1.3) mg/dL AST 28 (14-36) U/L ALT 15 (4-34) U/L Alkaline Phosphatase 48 (38-126) U/L Total Protein 6.5 (6.3-8.2) g/dL Albumin 3.8 (3.5-5.0) g/dL HCG, Quant 69286.9 mIU/mL Urine Color Urine Appearance (Clear) Urine pH (5.0-8.0) Ur Specific [place] (1.001-1.035) Urine Protein (Negative) Urine Glucose (UA) (Negative) Urine Ketones (Negative) Urine Blood (Negative) Urine Nitrite (Negative) Urine Bilirubin (Negative) Urine Urobilinogen (<2.0) mg/dL Ur Leukocyte Esterase (Negative) Urine RBC (0-5) /hpf Urine WBC (0-5) /hpf Ur Squamous Epith Cells (0-4) /hpf Urine Mucus (None) /hpf 11/04/23 Range/Units 12:00 WBC (3.8-10.6) k/uL RBC (3.80-5.40) m/uL Hgb (11.4-16.0) gm/dL Hct (34.0-46.0) % MCV (80.0-100.0) fL MCH (25.0-35.0) pg MCHC (31.0-37.0) g/dL RDW (11.5-15.5) % Plt Count (150-450) k/uL MPV Neutrophils % % Lymphocytes % % Monocytes % % Eosinophils % % Basophils % % Neutrophils # (1.3-7.7) k/uL Lymphocytes # (1.0-4.8) k/uL Monocytes # (0-1.0) k/uL Eosinophils # (0-0.7) k/uL Basophils # (0-0.2) k/uL PT (10.0-12.5) sec INR (<1.2) APTT (22.0-30.0) sec Sodium (137-145) mmol/L Potassium (3.5-5.1) mmol/L Chloride (98-107) mmol/L Carbon Dioxide (22-30) mmol/L Anion Gap mmol/L BUN (7-17) mg/dL Creatinine (0.52-1.04) mg/dL Est GFR (CKD-EPI)AfAm (>60 ml/min/1.73 sqM) Est GFR (CKD-EPI)NonAf (>60 ml/min/1.73 sqM) Glucose (74-99) mg/dL Calcium (8.4-10.2) mg/dL Total Bilirubin (0.2-1.3) mg/dL AST (14-36) U/L ALT (4-34) U/L Alkaline Phosphatase (38-126) U/L Total Protein (6.3-8.2) g/dL Albumin (3.5-5.0) g/dL HCG, Quant mIU/mL Urine Color Light Yellow Urine Appearance Clear (Clear) Urine pH 6.5 (5.0-8.0) Ur Specific [place] 1.022 (1.001-1.035) Urine Protein Negative (Negative) Urine Glucose (UA) Negative (Negative) Urine Ketones Negative (Negative) Urine Blood Moderate H (Negative) Urine Nitrite Negative (Negative) Urine Bilirubin Negative (Negative) Urine Urobilinogen <2.0 (<2.0) mg/dL Ur Leukocyte Esterase Negative (Negative) Urine RBC 1 (0-5) /hpf Urine WBC 1 (0-5) /hpf Ur Squamous Epith Cells 2 (0-4) /hpf Urine Mucus Rare H (None) /hpf Disposition Clinical Impression: Threatened Disposition: HOME SELF-CARE Condition: Stable Instructions (If sedation given, give patient instructions): Threatened Miscarriage (ED) Additional Instructions: Please follow-up with your OB in 1 to 2 days. Please return to the Emergency Department if symptoms worsen or any other concerns. Is patient prescribed a controlled substance at d/c from ED?: No Referrals: Rosemarie Estrada MD [Primary Care Provider] - 1-2 days Time of Disposition: 14:38
[2023-11-04 12:26] LABS: ALT 15 U/L (4-34); AST 28 U/L (14-36); African American GFR (CKD) >90 (>60 ml/min/1.73 sqM); Albumin 3.8 g/dL (3.5-5.0); Alkaline Phosphatase 48 U/L (38-126); Anion Gap 6 mmol/L; Blood Urea Nitrogen 11 mg/dL (7-17); Carbon Dioxide 18 mmol/L (22-30); Chloride 108 mmol/L (98-107); Glucose 87 mg/dL (74-99); Non-African American GFR(CKD) >90 (>60 ml/min/1.73 sqM); Potassium 4.1 mmol/L (3.5-5.1); Sodium 132 mmol/L (137-145); Total Bilirubin 0.7 mg/dL (0.2-1.3); Total Protein 6.5 g/dL (6.3-8.2)
[2023-11-04 12:30] LABS: Appearance,Urine Clear (Clear); Bilirubin,Urine Negative (Negative); Blood,Urine Moderate (Negative); Color,Urine Light Yellow; Glucose,Urine (UA) Negative (Negative); Ketones,Urine Negative (Negative); Leukocyte Esterase,Urine Negative (Negative); Mucus,Urine Rare /hpf; Nitrite,Urine Negative (Negative); PH, Urine 6.5 (5.0-8.0); Protein,Urine Negative (Negative); RBC,Urine 1 /hpf (0-5); Specific Gravity,Urine 1.022 (1.001-1.035); Squamous Epithelial Cell,Urine 2 /hpf (0-4); Urobilinogen,Urine <2.0 mg/dL (<2.0); WBC,Urine 1 /hpf (0-5)
[2023-11-04 12:43] LABS: INR 0.9 (<1.2); Partial Thromboplastin Time 24.7 sec (22.0-30.0); Prothrombin Time 10.1 sec (10.0-12.5)
[2023-11-04 12:51] LABS: Basophils % (A) 0 %; Eosinophils # (A) 0.1 k/uL (0-0.7); Eosinophils % (A) 2 %; HCT 37.1 % (34.0-46.0); HGB 12.1 gm/dL (11.4-16.0); Lymphocytes # (A) 1.2 k/uL (1.0-4.8); Lymphocytes % (A) 14 %; MCH 27.4 pg (25.0-35.0); MCHC 32.6 g/dL (31.0-37.0); Mean Platelet Volume 7.1; Monocytes # (A) 0.4 k/uL (0-1.0); Monocytes % (A) 4 %; Neutrophils # (A) 6.8 k/uL (1.3-7.7); Neutrophils % (A) 79 %; Platelet Count 322 k/uL (150-450); RBC 4.41 m/uL (3.80-5.40); RDW 14.1 % (11.5-15.5); WBC 8.6 k/uL (3.8-10.6)
--- NOTE | 2023-11-04 13:44 | US ---
EXAMINATION TYPE: US OB >= 14 wk fetus DATE OF EXAM: 11/04/2023 COMPARISON: US 2023 CLINICAL INDICATION: Female, 23 years old with history of vaginal bleeding; TECHNIQUE: Transabdominal (TA) GESTATIONAL AGE / DATING Physician Established: (15 weeks/0 days) EDC: 04/27/2024 Dates by LMP: (15 weeks/0 days) EDC: 04/27/2024 Dates by First Scan: (14 weeks/6 days) EDC: 04/28/2024 Dates by Current Scan: (15 weeks/1 days) EDC: 04/26/2024 SURVEY IUP: Single PLACENTA: Posterior PREVIA: No Previa ELISEO: 12.1 cm Normal CERVICAL LENGTH (transabdominal: norm > 3.0cm): 3.4 cm BIOMETRY PRESENTATION: Breech LIE: Longitudinal BPD: 3.0 cm 15 weeks / 3 days HC: 10.7 cm 15 weeks / 1 days AC: 8.7 cm 15 weeks / 0 days FL: 1.7 cm 15 weeks / 0 days ESTIMATED WEIGHT IN GRAMS: 112 grams ESTIMATED WEIGHT IN LBS/OZ: 0 lbs. 4 oz. WEIGHT PERCENTAGE BASED ON ESTABLISHED DATES: 37% HC/AC: 1.22 Normal FL/AC: 19% HEART RATE: 147 bpm RHYTHM: Normal 2 subchorionic bleeds seen - 3.6 x 1.6 x 6.0cm inferior to gestational sac, 2.3 x 2.3 x 4.1cm super ior to gestational sac IMPRESSION: Single live intrauterine gestation ultrasound age 15 weeks 1 day. There is at least 2 subchorionic he morrhages outlined by the financial planning consultant.
[2023-11-04 13:45] LABS: HCG,Quantitative Serum 70776.9 mIU/mL
[2023-11-04 14:43] VITALS: BP 112/86; PULSE 72; TEMP 98.1
== END 2023-11-04 15:01 | disposition home or self-care (01) ==
LOC: EC 11:08
DX: O20.0 Threatened abortion (principal); O99.332 Smoking (tobacco) complicating pregnancy, second trimester; F17.290 Nicotine dependence, other tobacco product, uncomplicated; Z3A.15 15 weeks gestation of pregnancy; Z88.2 Allergy status to sulfonamides; Z88.6 Allergy status to analgesic agent
CPT/HCPCS: 36415; 76805; 80053; 81001; 84702; 85025; 85610; 85730; 99284

== ENCOUNTER 2023-11-21 14:52 | Emergency (ER) | payer OTHER ==
[2023-11-21 14:57] VITALS: RESP 18; TEMP 97.7
[2023-11-21 15:34] LABS: Basophils % (A) 0 %; Eosinophils # (A) 0.2 k/uL (0-0.7); Eosinophils % (A) 2 %; HCT 36.5 % (34.0-46.0); HGB 12.1 gm/dL (11.4-16.0); Lymphocytes # (A) 1.4 k/uL (1.0-4.8); Lymphocytes % (A) 13 %; MCH 27.8 pg (25.0-35.0); MCHC 33.2 g/dL (31.0-37.0); MCV 83.7 fL (80.0-100.0); Mean Platelet Volume 6.8; Monocytes # (A) 0.5 k/uL (0-1.0); Monocytes % (A) 5 %; Neutrophils # (A) 8.6 k/uL (1.3-7.7); Neutrophils % (A) 79 %; Platelet Count 370 k/uL (150-450); RBC 4.37 m/uL (3.80-5.40); WBC 10.9 k/uL (3.8-10.6)
[2023-11-21 15:46] LABS: ALT 22 U/L (4-34); AST 35 U/L (14-36); African American GFR (CKD) >90 (>60 ml/min/1.73 sqM); Alkaline Phosphatase 59 U/L (38-126); Anion Gap 8 mmol/L; Blood Urea Nitrogen 12 mg/dL (7-17); Calcium 9.3 mg/dL (8.4-10.2); Carbon Dioxide 18 mmol/L (22-30); Chloride 108 mmol/L (98-107); Glucose 84 mg/dL (74-99); Non-African American GFR(CKD) >90 (>60 ml/min/1.73 sqM); Potassium 3.9 mmol/L (3.5-5.1); Sodium 134 mmol/L (137-145); Total Bilirubin 0.5 mg/dL (0.2-1.3)
[2023-11-21 16:27] LABS: INR 0.9 (<1.2); Partial Thromboplastin Time 25.1 sec (22.0-30.0); Prothrombin Time 9.9 sec (10.0-12.5)
[2023-11-21 16:46] LABS: Appearance,Urine Clear (Clear); Bilirubin,Urine Negative (Negative); Blood,Urine Trace (Negative); Color,Urine Yellow; Glucose,Urine (UA) Negative (Negative); Ketones,Urine Negative (Negative); Leukocyte Esterase,Urine Negative (Negative); Mucus,Urine Rare /hpf; Nitrite,Urine Negative (Negative); Protein,Urine Trace (Negative); RBC,Urine 2 /hpf (0-5); Specific Gravity,Urine 1.028 (1.001-1.035); Squamous Epithelial Cell,Urine 1 /hpf (0-4); Urobilinogen,Urine <2.0 mg/dL (<2.0); WBC,Urine 3 /hpf (0-5)
[2023-11-21] MEDS: ACETAMINOPHEN TAB 500 MG TAB PO STA (17:23)
[2023-11-21] MEDS: FAMOTIDINE 20 MG/2 ML VIAL IV STA (17:24)
[2023-11-21] MEDS: ONDANSETRON 4 MG/2 ML VIAL IVP STA (17:25)
--- NOTE | 2023-11-21 18:01 | ED ---
General Adult HPI - General Chief complaint: Nausea/Vomiting/Diarrhea Stated complaint: 17 wks , blood in vomit Time Seen by Provider: 11/21/23 16:45 Source: patient Mode of arrival: ambulatory Limitations: no limitations - History of Present Illness Initial comments: 23-year-old female presents emergency department reporting vomiting. Patient states that she was at work earlier today. She started having intense reflux with nausea. She went to the bathroom where she had an episode of vomiting. States that she tried to go back to work but continued to feel nauseated and ended up having a second episode of retching. During the second episode the patient had some mucus with red blood streaking. She immediately came to the [facility] for this. She denies history of peptic ulcers. She only had the 2 episodes of vomiting. She has not had any more since. No fevers. Denies any abdominal pain. No vaginal bleeding. She has never had an endoscopy. No other alleviating, precipitating or modifying factors - Related Data Home Medications Medication Instructions Recorded Confirmed Ferrous Sulfate [Iron (65 MG 325 mg PO DAILY 01/19/19 01/27/19 Elemental)] Naproxen 500 mg PO BID 01/19/19 01/27/19 Varenicline [Chantix Continuing 1 mg PO BID 01/19/19 01/27/19 Pack] Previous Rx's Medication Instructions Recorded Nicotine Gum (Polacrilex) 2 mg BUCCAL Q4HR PRN gum 01/27/19 [Nicorette] busPIRone HCl [Buspar] 15 mg PO BID #60 tab 01/27/19 lamoTRIgine [LaMICtal] 100 mg PO DAILY #30 tab 01/27/19 Doxycycline Monohydrate [Monodox] 100 mg PO Q12HR #14 cap 06/03/20 Amoxicillin 500 mg PO Q8H #21 capsule 09/06/23 Albuterol Inhaler [Ventolin Hfa 2 puff INHALATION QID #8 gm 11/21/23 Inhaler] Ondansetron Odt [Zofran Odt] 4 mg PO Q8HR PRN #30 tab 11/21/23 Allergies Allergy/AdvReac Type Severity Reaction Status Date / Time ibuprofen [From Motrin] Allergy Unknown Verified 11/21/23 14:57 Sulfa (Sulfonamide Allergy Unknown Verified 11/21/23 14:57 Antibiotics) Review of Systems ROS Statement: Those systems with pertinent positive or pertinent negative responses have been documented in the HPI. ROS Other: All systems not noted in ROS Statement are negative. Past Medical History Past Medical History: Asthma, Thyroid Disorder Additional Past Medical History / Comment(s): low iron, enlarged thyroid, severe headaches. History of Any Multi-Drug Resistant Organisms: None Reported Past Surgical History: No Surgical Hx Reported Additional Past Surgical History / Comment(s): Pt states she has never had surgery. Past Anesthesia/Blood Transfusion Reactions: No Reported Reaction Past Psychological History: ADD/ADHD, Anxiety Smoking Status: Current some day smoker, Vaper Past Alcohol Use History: None Reported Past Drug Use History: Marijuana - Past Family History Father History Unknown: Yes Additional Family Medical History / Comment(s): Pt's father is not in her life Mother Family Medical History: COPD Additional Family Medical History / Comment(s): Mother wears oxygen at night. General Exam Limitations: no limitations General appearance: alert, in no apparent distress Head exam: Present: atraumatic, normocephalic, normal inspection Eye exam: Present: normal appearance, PERRL, EOMI. Absent: scleral icterus, conjunctival injection, periorbital swelling ENT exam: Present: normal exam, mucous membranes moist Neck exam: Present: normal inspection. Absent: tenderness, meningismus, lymphadenopathy Respiratory exam: Present: normal lung sounds bilaterally. Absent: respiratory distress, wheezes, rales, rhonchi, stridor Cardiovascular Exam: Present: regular rate, normal rhythm, normal heart sounds. Absent: systolic murmur, diastolic murmur, rubs, gallop, clicks GI/Abdominal exam: Present: soft, normal bowel sounds. Absent: distended, tenderness, guarding, rebound, rigid Extremities exam: Present: normal inspection, full ROM, normal capillary refill. Absent: tenderness, pedal edema, joint swelling, calf tenderness Back exam: Present: normal inspection Neurological exam: Present: alert, oriented X3, CN II-XII intact Psychiatric exam: Present: normal affect, normal mood Skin exam: Present: warm, dry, intact, normal color. Absent: rash Course Vital Signs 11/21/23 11/21/23 14:56 18:07 Temperature 97.7 F Pulse Rate 71 70 Respiratory 18 18 Rate Blood Pressure 123/69 107/58 O2 Sat by Pulse 98 99 Oximetry Medical Decision Making - Medical Decision Making Was pt. sent in by a medical professional or institution (, DANETTE, DISTRIBUTION OPERATIONS SUPERVISOR, urgent care, hospital, or [facility]...) When possible be specific @ -No Did you speak to anyone other than the patient for history (EMS, parent, family, police, friend...)? What history was obtained from this source @ -No Did you review nursing and triage notes (agree or disagree)? Why? @ -I reviewed and agree with nursing and triage notes Were old charts reviewed (outside hosp., previous admission, EMS record, old EKG, old radiological studies, urgent care reports/EKG's, [facility] records)? Report findings @ -I reviewed ultrasound from November 03 Differential Diagnosis (chest pain, altered mental status, abdominal pain women, abdominal pain men, vaginal bleeding, weakness, fever, dyspnea, syncope, headache, dizziness, GI bleed, back pain, seizure, CVA, palpatations, mental health, musculoskeletal)? @ -Differential GI Bleed: Esophageal varices, aortoenteric fistula, Isela-Honeycutt, gastritis, peptic ulcer disease, diverticulosis, inflammatory bowel disease, hemorrhoids, fissure, colitis, malignancy, Meckels diverticulum, this is not meant to be an all- inclusive list. EKG interpreted by me (3pts min.). @ -Not done X-rays interpreted by me (1pt min.). @ -None done CT interpreted by me (1pt min.). @ -None done U/S interpreted by me (1pt. min.). @ -None done What testing was considered but not performed or refused? (CT, X-rays, U/S, labs)? Why? @ -None What meds were considered but not given or refused? Why? @ -None Did you discuss the management of the patient with other professionals (professionals i.e. DANETTE Rowley, DISTRIBUTION OPERATIONS SUPERVISOR, lab, RT, psych nurse, older adult social work specialist, steamblaster, teacher, court security officer, immigration case worker)? Give summary @ -No Was smoking cessation discussed for >3mins.? @ -No Was critical care preformed (if so, how long)? @ -No Were there social determinants of health that impacted care today? How? (Homelessness, low income, unemployed, alcoholism, drug addiction, transportation, low edu. Level, literacy, decrease access to med. care, detention, rehab)? @ -No Was there de-escalation of care discussed even if they declined (Discuss DNR or withdrawal of care, Hospice)? DNR status @ -No What co-morbidities impacted this encounter? (DM, HTN, Smoking, COPD, CAD, Cancer, CVA, ARF, Chemo, Hep., AIDS, mental health diagnosis, sleep apnea, morbid obesity)? @ -None Was patient admitted / discharged? Hospital course, mention meds given and route, prescriptions, significant lab abnormalities, going to OR and other pertinent info. @ -Upon arrival patient seen and evaluated in room 1. Thorough history and physical exam was performed. Laboratory studies are conducted. Patient does not have any vomiting while in the emergency department. She was given some Tylenol, Zofran and Pepcid. Patient does feel improved. At this time she will be discharged home. Instructed to use Tums for her reflux. I will prescribe her antinausea medications. She is to continue taking her . 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 Patient's home medication of albuterol inhaler was also represcribed. Patient was agreeable to this and discharged in stable condition Undiagnosed new problem with uncertain prognosis? @ -No Drug Therapy requiring intensive monitoring for toxicity (Heparin, Nitro, Insulin, Cardizem)? @ -No Were any procedures done? @ -No Diagnosis/symptom? @ -Acute hematemesis, second trimester Acute, or Chronic, or Acute on Chronic? @ -Acute Uncomplicated (without systemic symptoms) or Complicated (systemic symptoms)? @ -Complicated Side effects of treatment? @ -No Exacerbation, Progression, or Severe Exacerbation? @ -No Poses a threat to life or bodily function? How? (Chest pain, [place], [place], pneumonia, PE, COPD, DKA, ARF, appy, cholecystitis, CVA, Diverticulitis, Homicidal, Suicidal, threat to staff... and all critical care pts) @ -No - Lab Data Result diagrams: 11/21/23 15:09 11/21/23 15:09 Lab Results 11/21/23 11/21/23 11/21/23 Range/Units 15:09 15:09 15:09 WBC 10.9 H (3.8-10.6) k/uL RBC 4.37 (3.80-5.40) m/uL Hgb 12.1 (11.4-16.0) gm/dL Hct 36.5 (34.0-46.0) % MCV 83.7 (80.0-100.0) fL MCH 27.8 (25.0-35.0) pg MCHC 33.2 (31.0-37.0) g/dL RDW 14.0 (11.5-15.5) % Plt Count 370 (150-450) k/uL MPV 6.8 Neutrophils % 79 % Lymphocytes % 13 % Monocytes % 5 % Eosinophils % 2 % Basophils % 0 % Neutrophils # 8.6 H (1.3-7.7) k/uL Lymphocytes # 1.4 (1.0-4.8) k/uL Monocytes # 0.5 (0-1.0) k/uL Eosinophils # 0.2 (0-0.7) k/uL Basophils # 0.0 (0-0.2) k/uL PT 9.9 L (10.0-12.5) sec INR 0.9 (<1.2) APTT 25.1 (22.0-30.0) sec Sodium (137-145) mmol/L Potassium (3.5-5.1) mmol/L Chloride (98-107) mmol/L Carbon Dioxide (22-30) mmol/L Anion Gap mmol/L BUN (7-17) mg/dL Creatinine (0.52-1.04) mg/dL Est GFR (CKD-EPI)AfAm (>60 ml/min/1.73 sqM) Est GFR (CKD-EPI)NonAf (>60 ml/min/1.73 sqM) Glucose (74-99) mg/dL Calcium (8.4-10.2) mg/dL Total Bilirubin (0.2-1.3) mg/dL AST (14-36) U/L ALT (4-34) U/L Alkaline Phosphatase (38-126) U/L Total Protein (6.3-8.2) g/dL Albumin (3.5-5.0) g/dL Urine Color Yellow Urine Appearance Clear (Clear) Urine pH 6.0 (5.0-8.0) Ur Specific [place] 1.028 (1.001-1.035) Urine Protein Trace H (Negative) Urine Glucose (UA) Negative (Negative) Urine Ketones Negative (Negative) Urine Blood Trace H (Negative) Urine Nitrite Negative (Negative) Urine Bilirubin Negative (Negative) Urine Urobilinogen <2.0 (<2.0) mg/dL Ur Leukocyte Esterase Negative (Negative) Urine RBC 2 (0-5) /hpf Urine WBC 3 (0-5) /hpf Ur Squamous Epith Cells 1 (0-4) /hpf Urine Mucus Rare H (None) /hpf Blood Type Blood Type Recheck Bld Type Recheck Status 11/21/23 11/21/23 Range/Units 15:09 15:24 WBC (3.8-10.6) k/uL RBC (3.80-5.40) m/uL Hgb (11.4-16.0) gm/dL Hct (34.0-46.0) % MCV (80.0-100.0) fL MCH (25.0-35.0) pg MCHC (31.0-37.0) g/dL RDW (11.5-15.5) % Plt Count (150-450) k/uL MPV Neutrophils % % Lymphocytes % % Monocytes % % Eosinophils % % Basophils % % Neutrophils # (1.3-7.7) k/uL Lymphocytes # (1.0-4.8) k/uL Monocytes # (0-1.0) k/uL Eosinophils # (0-0.7) k/uL Basophils # (0-0.2) k/uL PT (10.0-12.5) sec INR (<1.2) APTT (22.0-30.0) sec Sodium 134 L (137-145) mmol/L Potassium 3.9 (3.5-5.1) mmol/L Chloride 108 H (98-107) mmol/L Carbon Dioxide 18 L (22-30) mmol/L Anion Gap 8 mmol/L BUN 12 (7-17) mg/dL Creatinine 0.59 (0.52-1.04) mg/dL Est GFR (CKD-EPI)AfAm >90 (>60 ml/min/1.73 sqM) Est GFR (CKD-EPI)NonAf >90 (>60 ml/min/1.73 sqM) Glucose 84 (74-99) mg/dL Calcium 9.3 (8.4-10.2) mg/dL Total Bilirubin 0.5 (0.2-1.3) mg/dL AST 35 (14-36) U/L ALT 22 (4-34) U/L Alkaline Phosphatase 59 (38-126) U/L Total Protein 7.0 (6.3-8.2) g/dL Albumin 4.0 (3.5-5.0) g/dL Urine Color Urine Appearance (Clear) Urine pH (5.0-8.0) Ur Specific [place] (1.001-1.035) Urine Protein (Negative) Urine Glucose (UA) (Negative) Urine Ketones (Negative) Urine Blood (Negative) Urine Nitrite (Negative) Urine Bilirubin (Negative) Urine Urobilinogen (<2.0) mg/dL Ur Leukocyte Esterase (Negative) Urine RBC (0-5) /hpf Urine WBC (0-5) /hpf Ur Squamous Epith Cells (0-4) /hpf Urine Mucus (None) /hpf Blood Type O Positive Blood Type Recheck O Pos Bld Type Recheck Status No Disposition Clinical Impression: Nausea and vomiting, Second trimester , Hematemesis Disposition: HOME SELF-CARE Condition: Stable Instructions (If sedation given, give patient instructions): Acute Nausea and Vomiting (ED) Additional Instructions: Please take the nausea medications as directed. Use Tums for heartburn. Follow-up with your primary care doctor and return for any new or worsening symptoms Prescriptions: Albuterol Inhaler [Ventolin Hfa Inhaler] 2 puff INHALATION QID #8 gm Ondansetron Odt [Zofran Odt] 4 mg PO Q8HR PRN #30 tab PRN Reason: Nausea Is patient prescribed a controlled substance at d/c from ED?: No Referrals: Rosemarie Estrada MD [Primary Care Provider] - 1-2 days Time of Disposition: 18:00
[2023-11-21 18:07] VITALS: BP 107/58; PULSE 70
== END 2023-11-21 18:10 | disposition home or self-care (01) ==
LOC: EC 14:52
DX: O99.612 Diseases of the digestive system complicating pregnancy, second trimester (principal); K92.0 Hematemesis; O99.332 Smoking (tobacco) complicating pregnancy, second trimester; F17.290 Nicotine dependence, other tobacco product, uncomplicated; Z88.2 Allergy status to sulfonamides; Z88.6 Allergy status to analgesic agent; Z3A.17 17 weeks gestation of pregnancy
CPT/HCPCS: 36415; 86900; 86901; 80053; 85025; 85610; 85730; 81001; 99284; 96374; 96375; J2405; J3490

== ENCOUNTER 2023-11-29 14:43 | Emergency (ER) | payer OTHER ==
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
== END 2023-11-29 21:00 | disposition home or self-care (01) ==
LOC: EC 14:43
DX: O20.8 Other hemorrhage in early pregnancy (principal); Z3A.18 18 weeks gestation of pregnancy
CPT/HCPCS: 76805; 80053; 81003; 84702; 85025; 85610; 85730; 86850; 86900; 86901; 99284

== ENCOUNTER 2023-12-22 19:33 | Outpatient (CLI) | payer OTHER ==
[2023-12-22 20:08] LABS: Appearance,Urine Clear (Clear); Bacteria,Urine Rare /hpf; Bilirubin,Urine Negative (Negative); Blood,Urine Trace (Negative); Color,Urine Yellow; Glucose,Urine (UA) Negative (Negative); Ketones,Urine Negative (Negative); Leukocyte Esterase,Urine Negative (Negative); Mucus,Urine Many /hpf; Nitrite,Urine Negative (Negative); Protein,Urine Trace (Negative); RBC,Urine 3 /hpf (0-5); Squamous Epithelial Cell,Urine 2 /hpf (0-4); WBC,Urine 2 /hpf (0-5)
[2023-12-22 20:52] VITALS: BP 120/57; PULSE 71; RESP 16; TEMP 97.2
--- NOTE | 2024-01-07 09:18 | P.MSEPDOC ---
Presenting Problems - Arrival Data Date of Arrival on Unit: 12/22/23 Time of Arrival on Unit: 19:33 Mode of Transport: Ambulatory - Complaint OB-Reason for Admission/Chief Complaint: Decreased Movement Comment: Pt presents to triage with complaints of diarrhea x3 weeks, dark urine and general feeling of being dehydrated and decreased movement. Pt states that she had felt baby move a few times but not much since about 19 weeks Medical History - Information : 2 Para: 0 Term: 0 : 0 Abortions: Spontaneous or Elective: 1 Number of Living Children: 0 - Gestational Age Gestational Age by ENRIQUE (wks/days): 21 Weeks and 6 Days Review of Systems - Review of Systems Constitutional: No problems Breast: No problems ENT: No problems Cardiovascular: No problems Respiratory: No problems Gastrointestinal: No problems Genitourinary: No problems Musculoskeletal: No problems Neurological: No problems Skin: No problems Vital Signs - Temperature Temperature: 97.2 F Temperature Source: Temporal Artery Scan - Pulse Pulse Oximetery Pulse Rate: 71 Pulse Assessment Method: Pulse Oximetry - Respirations Respiratory Rate: 16 Oxygen Delivery Method: Room Air O2 Sat by Pulse Oximetry: 99 - Blood Pressure Right Arm Blood Pressure: 120/57 Blood Pressure Mean: 78 Blood Pressure Source: Automatic Cuff Medical Screen Scoring - Uterine Contractions Intensity: Absent Resting: Soft to palpation Physician Notification - Physician Notified Physician Notified Date: 12/22/23 Physician Notified Time: 20:21 Physician: Gómez Gilbert New Order Received: Yes - Notification Comment Comment: Dr. Gilbert called, reported on pt c/o diarrhea, decreased movement, dark urine, GA, G/P, FHT 147-154 per doppler, VS, absent N/V, U/A results. Dr. Gilbert suggests that pt follows up with primary care physician, orally hydrate, and take OTC immodium for diarrhea Maternal Triage Index - Maternal Triage Index Presenting for scheduled procedure w/no complaint: No - Stat/Priority 1 Stat Priority 1: No - Urgent/Priority 2 Urgent Priority 2: Yes Provider Notified: Gómez Gilbert Provider Notified Time: 20:21 Criteria Met for Priority 2: Pt presents to triage with complaints of diarrhea x3 weeks, dark urine and general feeling of being dehydrated and decreased movement. Pt states that she had felt baby move a few times but not much since about 19 weeks Disposition - Disposition OB Disposition: Discharge to home Discharge Date: 12/22/23 Discharge Time: 20:34 I agree with the RN Medical Screening Exam: Yes Physician's MSE Comment: I have neither seen nor examined the patient. Case reviewed; plan agreed upon as documented in EMR&OBIX.: Yes Diagnosis: RELATED CONDITIONS, UNSPECIFIED, SECOND TRIMESTER
== END 2023-12-22 20:34 | disposition home or self-care (01) ==
LOC: FBPOP 19:33
PROVIDERS: ATTEND Obstetrics & Gynecology
CPT/HCPCS: 81001; 99213

== ENCOUNTER 2023-12-29 14:07 | Outpatient (CLI) | payer OTHER ==
[2023-12-29 15:32] VITALS: BP 120/59; PULSE 80; RESP 16; TEMP 98
--- NOTE | 2024-01-10 11:18 | P.MSEPDOC ---
Presenting Problems - Arrival Data Date of Arrival on Unit: 12/29/23 Time of Arrival on Unit: 14:07 Mode of Transport: Ambulatory - Complaint OB-Reason for Admission/Chief Complaint: Vaginal Bleeding Medical History - Information : 2 Para: 0 Term: 0 : 0 Abortions: Spontaneous or Elective: 0 Number of Living Children: 0 - Gestational Age Gestational Age by ENRIQUE (wks/days): 22 Weeks and 6 Days - History Complications: Smoker Comment: Pt reports vaping. Review of Systems - Review of Systems Constitutional: No problems Breast: No problems ENT: No problems Cardiovascular: No problems Respiratory: No problems Gastrointestinal: No problems Genitourinary: No problems Musculoskeletal: No problems Neurological: No problems Skin: No problems Vital Signs - Temperature Temperature: 98.0 F Temperature Source: Temporal Artery Scan - Pulse Right Brachial Pulse Rate: 80 Pulse Assessment Method: Automatic Cuff - Respirations Respiratory Rate: 16 Oxygen Delivery Method: Room Air O2 Sat by Pulse Oximetry: 97 - Blood Pressure Right Arm Blood Pressure: 120/59 Blood Pressure Mean: 79 Blood Pressure Source: Automatic Cuff Medical Screen Scoring - Assessment - Baby A Baseline FHR: 135 Heart Rate - NICHD Category: Category I (Normal) Physician Notification - Physician Notified Physician Notified Date: 12/29/23 Physician Notified Time: 15:12 Physician: Alejandra Quiñones New Order Received: Yes - Notification Comment Comment: Dr. Quiñones called and given report on pt. Pt c/o. VS WNL. FHTs dopplered for 135-145bpm. Pt denies any current bleeding and no bleeding noted per RN. Orders received to d/c pt to home. Maternal Triage Index - Urgent/Priority 2 Urgent Priority 2: Yes Provider Notified: Alejandra Quiñones Provider Notified Time: 15:12 Criteria Met for Priority 2: Dr. Quiñones called and given report on pt. Pt c/o. VS WNL. FHTs dopplered for 135-145bpm. Pt denies any current bleeding and no bleeding noted per RN. Orders received to d/c pt to home. Disposition - Disposition OB Disposition: Discharge to home Discharge Date: 12/29/23 Discharge Time: 15:25 I agree with the RN Medical Screening Exam: Yes Case reviewed; plan agreed upon as documented in EMR&OBIX.: Yes Diagnosis: SPOTTING COMPLICATING , SECOND TRIMESTER
== END 2023-12-29 15:25 | disposition home or self-care (01) ==
LOC: FBPOP 14:07
PROVIDERS: ATTEND Obstetrics & Gynecology
CPT/HCPCS: 99213

== ENCOUNTER 2024-04-02 14:09 | Outpatient (CLI) | payer OTHER ==
[2024-04-02 14:52] LABS: Appearance,Urine Cloudy (Clear); Bilirubin,Urine Negative (Negative); Blood,Urine Negative (Negative); Color,Urine Yellow; Glucose,Urine (UA) Negative (Negative); Ketones,Urine Negative (Negative); Leukocyte Esterase,Urine Negative (Negative); Mucus,Urine Many /hpf; Nitrite,Urine Negative (Negative); PH, Urine 6.5 (5.0-8.0); Protein,Urine 1+ (Negative); RBC,Urine 1 /hpf (0-5); Specific Gravity,Urine 1.029 (1.001-1.035); Squamous Epithelial Cell,Urine 7 /hpf (0-4); WBC,Urine 2 /hpf (0-5)
[2024-04-02 15:25] VITALS: BP 120/69; PULSE 63; RESP 16; TEMP 96.5
--- NOTE | 2024-04-07 13:35 | P.MSEPDOC ---
Presenting Problems - Arrival Data Date of Arrival on Unit: 04/02/24 Time of Arrival on Unit: 14:09 Mode of Transport: Ambulatory - Complaint OB-Reason for Admission/Chief Complaint: Acute Nausea/Vomiting Medical History - Information : 2 Para: 0 Term: 0 : 0 Abortions: Spontaneous or Elective: 0 Number of Living Children: 0 - Gestational Age Gestational Age by ENRIQUE (wks/days): 36 Weeks and 3 Days - History Complications: Smoker, Hx. Substance Abuse Review of Systems - Review of Systems Constitutional: No problems Breast: No problems ENT: No problems Cardiovascular: No problems Respiratory: No problems Gastrointestinal: Diarrhea Genitourinary: No problems Musculoskeletal: No problems Neurological: No problems Skin: No problems Vital Signs - Temperature Temperature: 96.5 F Temperature Source: Temporal Artery Scan - Pulse Right Brachial Pulse Rate: 63 Pulse Assessment Method: Automatic Cuff - Respirations Respiratory Rate: 16 Oxygen Delivery Method: Room Air O2 Sat by Pulse Oximetry: 97 - Blood Pressure Right Arm Sitting Blood Pressure: 120/69 Blood Pressure Mean: 86 Blood Pressure Source: Automatic Cuff Medical Screen Scoring - Assessment - Baby A Baseline FHR: 130 Heart Rate - NICHD Category: Category I (Normal) NST: Reactive Physician Notification - Physician Notified Physician Notified Date: 04/02/24 Physician Notified Time: 15:16 Physician: Verenice Lance New Order Received: Yes (may be discharged if holding water down) Maternal Triage Index - Maternal Triage Index Presenting for scheduled procedure w/no complaint: No - Stat/Priority 1 Stat Priority 1: No - Urgent/Priority 2 Urgent Priority 2: Yes Provider Notified: Verenice Lance Provider Notified Time: 15:16 Criteria Met for Priority 2: 36.3 nausea vomiting Disposition - Disposition OB Disposition: Triage, Discharge to home, Written follow up instructions reviewed Discharge Date: 04/02/24 Discharge Time: 15:29 I agree with the RN Medical Screening Exam: Yes Case reviewed; plan agreed upon as documented in EMR&OBIX.: Yes Diagnosis: DEHYDRATION
== END 2024-04-02 15:31 | disposition home or self-care (01) ==
LOC: FBPOP 14:09
PROVIDERS: ATTEND Obstetrics & Gynecology Obstetrics
DX: O26.893 Other specified pregnancy related conditions, third trimester (principal); Z3A.36 36 weeks gestation of pregnancy; O21.9 Vomiting of pregnancy, unspecified; O99.283 Endocrine, nutritional and metabolic diseases complicating pregnancy, third trimester; E86.0 Dehydration; Z88.2 Allergy status to sulfonamides; Z88.6 Allergy status to analgesic agent; F17.210 Nicotine dependence, cigarettes, uncomplicated
CPT/HCPCS: 59025; 81001; G0463; 99213

== ENCOUNTER 2024-04-07 13:33 | Inpatient (IN) | payer OTHER ==
[2024-04-07] MEDS ORDERED: miSOPROStoL 200 MCG TAB PO PRN (14:03)
[2024-04-07] MEDS ORDERED: LIDOCAINE 0.5% (PF) 5 MG/ML (50 ML SDV) SQ PRN (14:03)
[2024-04-07] MEDS ORDERED: OXYTOCIN 10 UNIT/ML 1 ML VIAL IM PRN (14:03)
[2024-04-07] MEDS ORDERED: miSOPROStoL 200 MCG TAB RECTAL PRN (14:03)
[2024-04-07] MEDS ORDERED: TERBUTALINE 1 MG/ML VIAL SQ PRN (14:03)
[2024-04-07] MEDS ORDERED: METHYLERGONOVINE 0.2 MG/ML 1 ML AMP IM PRN (14:03)
[2024-04-07] MEDS ORDERED: CARBOPROST TROMETHAMINE 250 MCG/ML 1 ML AMP IM PRN (14:03)
[2024-04-07] MEDS ORDERED: TRANEXAMIC 1,000 MG/100ML-NACL 1,000 MG in EMPTY BAG 1 BAG IV PRN (14:03)
[2024-04-07] MEDS: LACTATED RINGERS 1,000 ML IV SCH ×2 (14:38→22:10)
[2024-04-07] MEDS: OXYTOCIN 30 UNITS/500 ML NS 30 UNIT in SALINE 1 500ML.BAG IV SCH (14:39)
[2024-04-07 14:53] LABS: Basophils # (A) 0.1 k/uL (0-0.2); Basophils % (A) 1 %; Eosinophils # (A) 0.1 k/uL (0-0.7); Eosinophils % (A) 1 %; HCT 35.8 % (34.0-46.0); HGB 11.7 gm/dL (11.4-16.0); Hypochromasia Slight; Lymphocytes # (A) 1.5 k/uL (1.0-4.8); Lymphocytes % (A) 17 %; MCH 25.5 pg (25.0-35.0); MCHC 32.6 g/dL (31.0-37.0); MCV 78.2 fL (80.0-100.0); Mean Platelet Volume 7.4; Monocytes # (A) 0.5 k/uL (0-1.0); Monocytes % (A) 5 %; Neutrophils # (A) 6.5 k/uL (1.3-7.7); Neutrophils % (A) 74 %; Platelet Count 444 k/uL (150-450); RBC 4.58 m/uL (3.80-5.40); RDW 13.6 % (11.5-15.5); WBC 8.8 k/uL (3.8-10.6)
[2024-04-07] MEDS: CITRIC ACID-SODIUM CITRATE 15 ML CUP PO ONE (17:00)
[2024-04-07] MEDS: LACTATED RINGERS 1,000 ML IV ONE (17:01)
[2024-04-07] MEDS ORDERED: NALBUPHINE (ANES) 10 MG/ML - 1 ML AMP ONE (17:11)
[2024-04-07] MEDS ORDERED: MORPHINE SULFATE (PF) 0.3 MG/0.3 ML SYR ONE (17:11)
[2024-04-07] MEDS ORDERED: OXYTOCIN 30 UNITS/500 ML NS BAG IV ONE (17:11)
[2024-04-07] MEDS ORDERED: ONDANSETRON 4 MG/2 ML VIAL ONE (17:11)
[2024-04-07] MEDS ORDERED: diphenhydrAMINE 50 MG/ML 1 ML VIAL IVP PRN ×2 (17:49)
[2024-04-07] MEDS ORDERED: LANOLIN CREAM 1 GM TUBE TOPICAL PRN (17:49)
[2024-04-07] MEDS ORDERED: SIMETHICONE 80 MG CHEWABLE PO PRN (17:49)
[2024-04-07] MEDS ORDERED: ZOLPIDEM 5 MG TAB PO PRN (17:49)
[2024-04-07] MEDS ORDERED: NALOXONE 0.4 MG/ML 1 ML VIAL IV PRN (17:49)
[2024-04-07] MEDS ORDERED: ONDANSETRON 4 MG/2 ML VIAL IVP PRN (17:49)
[2024-04-07] MEDS ORDERED: diphenhydrAMINE 25 MG CAP PO PRN (17:49)
[2024-04-07] MEDS ORDERED: diphenhydrAMINE 50 MG CAP PO PRN (17:49)
[2024-04-07] MEDS ORDERED: OXYTOCIN 30 UNITS/500 ML NS 30 UNIT in SALINE 1 500ML.BAG IV SCH (18:00)
[2024-04-07] MEDS: ACETAMINOPHEN IV (For NPO) 1,000 MG in EMPTY BAG 1 BAG IVPB ONE (20:36)
[2024-04-07] MEDS: METOCLOPRAMIDE 5 MG/ML 2 ML VIAL IVP PRN (20:40)
[2024-04-07] MEDS ORDERED: KETOROLAC 15 MG/ML 1 ML VIAL IVP SCH (22:00)
[2024-04-07] MEDS: SENNOSIDES-DOCUSATE SODIUM 1 EACH TAB PO SCH (22:10)
[2024-04-07] MEDS: ACETAMINOPHEN TAB 500 MG TAB PO SCH (22:15)
[2024-04-08 06:21] LABS: Basophils % (A) 0 %; Eosinophils # (A) 0.1 k/uL (0-0.7); Eosinophils % (A) 1 %; HCT 31.8 % (34.0-46.0); HGB 10.2 gm/dL (11.4-16.0); Hypochromasia Slight; Lymphocytes # (A) 1.4 k/uL (1.0-4.8); Lymphocytes % (A) 12 %; MCH 25.5 pg (25.0-35.0); MCHC 32.2 g/dL (31.0-37.0); MCV 79.1 fL (80.0-100.0); Mean Platelet Volume 7.5; Monocytes # (A) 0.6 k/uL (0-1.0); Monocytes % (A) 5 %; Neutrophils # (A) 9.6 k/uL (1.3-7.7); Neutrophils % (A) 80 %; Platelet Count 382 k/uL (150-450); Poikilocytosis Slight; RBC 4.02 m/uL (3.80-5.40); RDW 13.7 % (11.5-15.5); WBC 11.9 k/uL (3.8-10.6)
--- NOTE | 2024-04-08 19:03 | P.PN ---
Progress Note - Text 04/08/24 1121am 3-year-old female status post with spinal Duramorph. Patient seen and evaluated for postop pain control she has a VAS of 4 with no complaints of nausea vomiting and mild pruritus which should subside
[2024-04-08] MEDS ORDERED: IBUPROFEN 800 MG TAB PO SCH (22:00)
--- NOTE | 2024-04-09 10:19 | P.HPOB ---
History of Present Illness H&P Date: 04/07/24 Chief Complaint: Spontaneous rupture of membranes 23-year-old G 2 P0 presents at 37 weeks and 1 day with spontaneous rupture of membranes. Her cervix is 1 cm dilated, 50% effaced, -3 station. She is juno irregularly. heart tones are 135 with moderate variability and reactive, category 1. Review of Systems All systems: negative Constitutional: Denies chills, Denies fever Eyes: denies blurred vision, denies pain Ears, nose, mouth and throat: Denies headache, Denies sore throat Cardiovascular: Denies chest pain, Denies shortness of breath Respiratory: Denies cough Gastrointestinal: Denies abdominal pain, Denies diarrhea, Denies nausea, Denies vomiting Genitourinary: Denies dysuria, Denies hematuria Musculoskeletal: Denies myalgias Integumentary: Denies pruritus, Denies rash Neurological: Denies numbness, Denies weakness Psychiatric: Denies anxiety, Denies depression Endocrine: Denies fatigue, Denies weight change Past Medical History Past Medical History: Asthma, Thyroid Disorder Additional Past Medical History / Comment(s): low iron, enlarged thyroid, severe headaches. History of Any Multi-Drug Resistant Organisms: None Reported Past Surgical History: No Surgical Hx Reported Additional Past Surgical History / Comment(s): Pt states she has never had surgery. Past Anesthesia/Blood Transfusion Reactions: No Reported Reaction Past Psychological History: ADD/ADHD, Anxiety, Depression Additional Psychological History / Comment(s): Hx of cutting. Pt states that was when she was 12 y/o Smoking Status: Never smoker Past Alcohol Use History: None Reported Additional Past Alcohol Use History / Comment(s): Quit with Past Drug Use History: Marijuana Additional Drug Use History / Comment(s): Pt states she uses marijuana occasionally for headaches, has not used since - Past Family History Father History Unknown: Yes Family Medical History: No Reported History Additional Family Medical History / Comment(s): Pt's father is not in her life Mother Family Medical History: COPD Additional Family Medical History / Comment(s): Mother wears oxygen at night. Medications and Allergies Home Medications Medication Instructions Recorded Confirmed Type Vit No.179/Iron/Folic 1 each PO DAILY 12/22/23 04/07/24 History [ Tablet] Albuterol Inhaler [Ventolin Hfa 90 mcg PO DIRECTED PRN 03/05/24 04/07/24 History Inhaler] Famotidine [Pepcid] 20 mg PO DAILY 03/05/24 04/07/24 History Omeprazole [PriLOSEC] 40 mg PO DAILY 03/05/24 04/07/24 History Allergies Allergy/AdvReac Type Severity Reaction Status Date / Time ibuprofen [From Motrin] Allergy Rash/Hives Verified 04/07/24 13:39 Sulfa (Sulfonamide Allergy Rash/Hives Verified 04/07/24 13:39 Antibiotics) Exam Osteopathic Statement: *. No significant issues noted on an osteopathic structural exam other than those noted in the History and Physical/Consult. Vital Signs Temp Pulse Resp BP Pulse Ox 04/09/24 08:00 98.4 F 92 18 125/67 98 04/09/24 00:00 98.5 F 80 16 125/75 98 04/08/24 16:00 97.9 F 69 16 114/72 100 04/08/24 12:31 98.1 F 66 16 119/82 Intake and Output 04/08/24 04/09/24 04/09/24 22:59 06:59 14:59 Output Total 700 Balance -700 Output: Urine 700 Other: # Voids 1 2 2 Heart: Regular rate and rhythm Lungs: Clear to auscultation bilaterally Abdomen: Soft, nontender Extremities: Negative Homans sign Results Result Diagrams: 04/08/24 05:58 Assessment and Plan (1) Spontaneous rupture of amniotic membranes Current Visit: Yes Status: Acute Code(s): BOI1462 - SNOMED Code(s): 567121540 (2) 37 weeks gestation of Current Visit: Yes Status: Acute Code(s): Z3A.37 - 37 WEEKS GESTATION OF SNOMED Code(s): 50692735 Plan: 1. Admit to family place 2. Pitocin augmentation 3. Anticipate normal vaginal delivery
--- NOTE | 2024-04-09 10:23 | P.OP ---
Date of Procedure: 04/07/24 Preoperative Diagnosis: 1. at 37 weeks and 1 day 2. spontaneous rupture of membranes 3. Category 2 heart tones Postoperative Diagnosis: 1. at 37 weeks and 1 day 2. spontaneous rupture of membranes 3. Category 2 heart tones Procedure(s) Performed: Primary low transverse Anesthesia: spinal Surgeon: Alejandra Quiñones Corporate Communications Specialist #1: Verenice Lance Estimated Blood Loss (ml): 463 IV fluids (ml): 800 Urine output (ml): 200 Pathology: other (placenta) Condition: stable Disposition: floor Indications for Procedure: 3-year-old presented at 37 weeks and 1 day with spontaneous rupture membranes. She is juno irregularly and heart tones were category 1. She is dilated 1 cm, 50% effaced, -3 station. Pitocin augmentation was started and this and she started feeling contractions, She started having variable decelerations down lasting 2 minutes at a time. Category II FHT managed following algorithm including initiation of corrective measure And the Pitocin off, oxygen and IV fluids as well as position changes. With the persistent presence of Prolonged variable decelerations, a patient-centered huddle was held and the need for an expedited deliver was discussed with the patient. It is our clinical recommendation to proceed with the delivery and after questions were answered to the patient agrees to proceed with the recommended plan. Operative Findings: Female, Apgars 8, 9, weight 6 pounds. Normal uterus, tubes, ovaries Description of Procedure: Patient was taken to the operating room where spinal anesthesia was found be adequate. She was prepped and draped in normal sterile fashion in dorsal supine position with a leftward tilt. Pfannenstiel skin incision was made the scalpel and carried through to the underlying layer of fascia with the scalpel. Fascia was incised in midline and carried bilaterally with the Solorio scissors. The superior aspect of the fascial incision was grasped with [place] clamps elevated and the underlying rectus muscles dissected off with the Solorio's. Attention was then turned to inferior aspect of same incision which in a similar fashion was grasped tented up and the underlying rectus muscles dissected off with the Solorio's. The rectus muscles were the midline and the peritoneum was identified tented up and entered sharply with the scalpel. The incision was extended superiorly and inferiorly with good visualization of the bladder. The bladder blade was inserted and the vesicouterine peritoneum was incised the [place] then carried bilaterally and bladder flap created digitally. A low transverse incision was then made on the uterus with the scalpel. This was carried bilaterally and digital manner. 's head delivered atraumatically, nose and mouth bulb suctioned, cord clamped and cut, infant handed off to waiting nurses. Apgars 8,9, weight 6 lbs. Placenta delivered manually, intact with three-vessel cord. The uterus is exteriorized and cleared of all clots and debris. The uterine incision was closed with 0 Vicryl in a running locked fashion. Second layer of the same sutures used in imbricating fashion to obtain excellent hemostasis. Both ovaries and tubes appeared normal. The uterus was placed back into the abdomen. The fascia was reapproximated using 0 Vicryl in a running fashion. The subcutaneous tissues closed with 3-0 Vicryl running fashion. The skin was closed [place]. Patient tolerated the procedure well, sponge and instrument counts were correct times 2 and she was taken to the re covery room in stable condition.
--- NOTE | 2024-04-09 10:24 | P.PNOBGPC ---
Subjective - Subjective Principal diagnosis: Post primary low transverse postop day 1 Interval history: Patient seen and examined. Denies nausea, vomiting, chest pain, shortness of breath or calf pain. Patient reports: Reports appetite normal, Reports voiding normally, Reports pain well controlled, Reports ambulating normally [place]: doing well Objective - Vital Signs Latest vital signs: Vital Signs Temp Pulse Resp BP Pulse Ox 04/09/24 08:00 98.4 F 92 18 125/67 98 04/09/24 00:00 98.5 F 80 16 125/75 98 04/08/24 16:00 97.9 F 69 16 114/72 100 04/08/24 12:31 98.1 F 66 16 119/82 Intake and Output 04/08/24 04/09/24 04/09/24 22:59 06:59 14:59 Output Total 700 Balance -700 Output: Urine 700 Other: # Voids 1 2 2 - Exam Lungs: bilateral: normal Chest: Normal S1, Normal S2 Extremities: Present: normal Abdomen: Present: normal appearance, soft. Absent: distention, tenderness Incision: Present: normal, dry, intact Uterus: Present: normal, firm Assessment and Plan (1) Spontaneous rupture of amniotic membranes Current Visit: Yes Status: Resolved Code(s): DQP6143 - SNOMED Code(s): 059100114 (2) 37 weeks gestation of Current Visit: Yes Status: Resolved Code(s): Z3A.37 - 37 WEEKS GESTATION OF SNOMED Code(s): 99134760 (3) Status post primary low transverse section Current Visit: Yes Status: Acute Code(s): Z98.891 - HISTORY OF UTERINE SCAR FROM PREVIOUS SURGERY SNOMED Code(s): 210588111 Plan: 1. increase ambulation 2. regular diet
[2024-04-09] MEDS: ALBUTEROL HFA INHALER INHALATION PRN (16:19)
[2024-04-10 02:00] VITALS: PULSE 97; RESP 16
[2024-04-10 08:11] VITALS: BP 130/85; TEMP 98.2
--- NOTE | 2024-04-10 08:26 | P.PNOBGPC ---
Subjective - Subjective Principal diagnosis: Status post primary low transverse postop day 2 Interval history: Patient seen and examined. Denies nausea, vomiting, chest pain, shortness of breath or calf pain. Patient reports: Reports appetite normal, Reports voiding normally, Reports pain well controlled, Reports ambulating normally : doing well Objective - Vital Signs Latest vital signs: Vital Signs Temp Pulse Resp BP Pulse Ox 04/10/24 08:10 98.2 F 97 16 130/85 04/10/24 00:00 98.5 F 97 16 116/75 97 04/09/24 15:43 98.5 F 70 18 128/70 98 Intake and Output 04/09/24 04/10/24 04/10/24 22:59 06:59 14:59 Other: # Voids 2 2 1 - Exam Lungs: bilateral: normal Chest: Normal S1, Normal S2 Extremities: Present: normal Abdomen: Present: normal appearance, soft. Absent: distention, tenderness Incision: Present: normal, dry, intact Uterus: Present: normal, firm Assessment and Plan (1) Spontaneous rupture of amniotic membranes Current Visit: Yes Status: Resolved Code(s): [id number] - SNOMED Code(s): 580874166 (2) 37 weeks gestation of Current Visit: Yes Status: Resolved Code(s): Z3A.37 - 37 WEEKS GESTATION OF SNOMED Code(s): 89702534 (3) Status post primary low transverse section Current Visit: Yes Status: Acute Code(s): Z98.891 - HISTORY OF UTERINE SCAR FROM PREVIOUS SURGERY SNOMED Code(s): 826554023 Plan: 1. Continue postoperative care
--- NOTE | 2024-04-10 08:27 | P.DS ---
Providers Date of admission: 04/07/24 14:04 Expected date of discharge: 04/10/24 Attending physician: Alejandra Quiñones Primary care physician: Stated None - Discharge Diagnosis(es) (1) Spontaneous rupture of amniotic membranes Current Visit: Yes Status: Resolved (2) 37 weeks gestation of Current Visit: Yes Status: Resolved (3) Status post primary low transverse section Current Visit: Yes Status: Acute Hospital Course: She presented with spontaneous rupture membranes. She underwent a a low transverse for category 2 heart tones. Postoperatively she is on very well. She denies nausea, vomiting, chest pain, shortness of breath or calf pain. Her incision is clean, dry, intact. Patient will be discharged home postoperative day #3 in stable condition to follow-up with me in 1-2 weeks. Plan - Discharge Summary New Discharge Prescriptions: No Action Vit No.179/Iron/Folic [ Tablet] 1 each PO DAILY Albuterol Inhaler [Ventolin Hfa Inhaler] 90 mcg PO DIRECTED PRN PRN Reason: Bronchospasm Omeprazole [PriLOSEC] 40 mg PO DAILY Famotidine [Pepcid] 20 mg PO DAILY Discharge Medication List Vit No.179/Iron/Folic [ Tablet] 1 each PO DAILY 12/22/23 [History] Albuterol Inhaler [Ventolin Hfa Inhaler] 90 mcg PO DIRECTED PRN 03/05/24 [History] Famotidine [Pepcid] 20 mg PO DAILY 03/05/24 [History] Omeprazole [PriLOSEC] 40 mg PO DAILY 03/05/24 [History] Follow up Appointment(s)/Referral(s): Alejandra Quiñones DO [Doctor of Osteopathic Medicine] - 1 Week Discharge Disposition: HOME SELF-CARE
== END 2024-04-10 14:10 | disposition home or self-care (01) | DRG 540 ==
LOC: FBPOP 13:33 → 4FBP 14:04
PROVIDERS: ADMIT Obstetrics & Gynecology; ATTEND Obstetrics & Gynecology
PROC: 4A0HXCZ Measurement of Products of Conception, Cardiac Rate, External Approach (ICD-10-PCS; 2024-04-07)
PROC: 3E033VJ Introduction of Other Hormone into Peripheral Vein, Percutaneous Approach (ICD-10-PCS; 2024-04-07)
PROC: 10D00Z1 Extraction of Products of Conception, Low, Open Approach (ICD-10-PCS; principal; 2024-04-07 17:11)
DX: O42.02 Full-term premature rupture of membranes, onset of labor within 24 hours of rupture (principal); O76 Abnormality in fetal heart rate and rhythm complicating labor and delivery; F90.9 Attention-deficit hyperactivity disorder, unspecified type; J45.909 Unspecified asthma, uncomplicated; O99.344 Other mental disorders complicating childbirth; O99.52 Diseases of the respiratory system complicating childbirth; F32.A Depression, unspecified; F41.9 Anxiety disorder, unspecified; Z37.0 Single live birth; Z3A.37 37 weeks gestation of pregnancy; Z91.52 Personal history of nonsuicidal self-harm; Z88.2 Allergy status to sulfonamides; Z88.6 Allergy status to analgesic agent
CPT/HCPCS: 59025; 84112; 85025; 86850; 86900; 86901; 99213